=== PATIENT | female | born 1950 | race Caucasian/White ===

== ENCOUNTER 2022-08-07 14:00 | Outpatient (RCR) | payer MEDICARE, SELFPAY | END 2022-09-16 16:42 | disposition home or self-care (01) | LOC: PT 14:00 | PROVIDERS: PCP Family Medicine | DX: M17.0 Bilateral primary osteoarthritis of knee (principal); Z96.653 Presence of artificial knee joint, bilateral | CPT/HCPCS: 97110; 97112; 97161 ==

== ENCOUNTER 2022-11-04 13:58 | Outpatient (RCR) | payer MEDICARE, SELFPAY | END 2022-11-22 13:13 | disposition home or self-care (01) | LOC: PT 13:58 | PROVIDERS: PCP Family Medicine | DX: Z96.653 Presence of artificial knee joint, bilateral (principal) | CPT/HCPCS: 97110; 97113; 97161 ==

== ENCOUNTER 2023-07-03 13:35 | Outpatient (OUT) | payer MEDICARE, SELFPAY ==
--- NOTE | 2023-07-03 13:39 | MM_ITS ---
Patient Name: BLANCHE MONIQUE MR#: [id number] : 1950 Exam Date: 07/03/2023 Ordering Doctor: DR Carrie Anderson M.D. RADIOLOGY REPORT PROCEDURE: MM TOMOSYNTHESIS DIAGNOSTIC BI COMPARISON: MG MAMM SCREEN 3D YESSI CAD, 06/23/2022. 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 LOCATION: [facility] BREAST COMPOSITION: There are scattered areas of fibroglandular density. FINDINGS: DIAGNOSTIC CATEGORY 2--BENIGN FINDING. NO CHANGE FROM COMPARISON. Scattered benign-appearing nodules are present. Scattered benign-appearing calcifications are present. Scattered benign-appearing lymph nodes are present. RIGHT BREAST: No significant suspicious finding. Area of focal asymmetry identified in the mid medial breast on the CC projection and 2 areas on MLO projection upper mid breast and lower mid breast. All 3 areas compress out on spot images and likely represent overlap of fibroglandular tissue LEFT BREAST: No significant suspicious finding. No mammographic abnormality to correspond to the patient's left anterior medial breast rash. Further evaluation of the rash should be based on clinical and physical exam RECOMMENDATIONS: ROUTINE MAMMOGRAM AND CLINICAL EVALUATION IN 12 MONTHS. PLEASE NOTE: A NORMAL MAMMOGRAM DOES NOT EXCLUDE THE POSSIBILITY OF BREAST CANCER. A CLINICALLY SUSPICIOUS PALPABLE LUMP SHOULD BE BIOPSIED. Dictated by: Tam Schmitt MD on 07/03/2023 at 14:28 Approved by: Tam Schmitt MD on 07/03/2023 at 14:30
== END 2023-07-03 13:36 | disposition home or self-care (01) ==
LOC: MAMMO 13:35
PROVIDERS: PCP Family Medicine; Visit Provider Family Medicine
DX: N64.59 Other signs and symptoms in breast (principal); Q83.9 Congenital malformation of breast, unspecified
CPT/HCPCS: 77066; G0279

== ENCOUNTER 2023-08-13 08:56 | Outpatient (OUT) | payer MEDICARE, SELFPAY ==
[2023-08-13 09:48] LABS: Thyroid Stimulating Hormone 2.522 uIU/mL (0.358-3.740)
[2023-08-13 10:07] LABS: Free T4 0.94 ng/dL (0.76-1.46)
== END 2023-08-13 08:57 | disposition home or self-care (01) ==
LOC: LAB 08:58
PROVIDERS: PCP Family Medicine; Visit Provider Family Medicine
DX: E03.9 Hypothyroidism, unspecified (principal)
CPT/HCPCS: 36415; 84439; 84443

== ENCOUNTER 2024-08-22 11:12 | Outpatient (OUT) | payer MEDICARE, SELFPAY ==
--- OUTSIDE RECORDS SUMMARY | 2022-10-24 07:00 | XMS_ITS | Continuity of Care Document ---
Author Organization [facility] Address [address] [place] [address] Phone Care Team Providers Care Payable Manager Name Role Phone Perry Grace MD Unavailable Unavailable Allergies, Adverse Reactions, Alerts Substance Reaction Status Criticality No Known allergies Medications Medication Instructions Dosage Effective Dates (start - stop) Status Comments ropinirole 0.25 mg tablet - Active trazodone 50 mg tablet - Act natalie trospium 20 mg tablet - Acti ve ergocalciferol (vitamin D2) 1,250 mcg (50,000 unit) capsule TAKE 1 CAPSULE BY MOUTH ONE TIME PER WEEK - Active levothyroxine 50 mcg tablet - Active lisinopril 10 mg-hydrochlorothiazide 12.5 mg tablet TAKE 1 TABLET BY MOUTH EVERY DAY - Active paroxetine 30 mg tablet - Ac tive ferrous sulfate 325 mg (65 mg iron) tablet TAKE 1 TABLET BY MOUTH TWICE A DAY - Active mupirocin 2 % topical ointment - Active oxybutynin chloride ER 10 mg tablet,extended release 24 hr TAKE 1 TABLET BY MOUTH EVERY DAY - Active alendronate 70 mg tablet TAKE 1 TABLET BY MOUTH WEEKLY - Active azithromycin 250 mg tablet TAKE 2 TABLETS BY MOUTH TODAY, THEN TAKE 1 TABLET DAILY FOR 4 DAYS - Active amoxicillin 500 mg capsule - Active oxybutynin chloride ER 15 mg tablet,extended release 24 hr TAKE 1 TABLET BY MOUTH EVERY DAY - Active Procedures Procedure Date Office/outpatient visit,[facility], [facility] 2022 X-ray exam of knee, 3 views Office/outpatient visit,[facility] 2022 X-ray exam of knee, 3 views Advance Directives Directive Yes / No Effective Date File Name No Information Encounters Encounter Description Practice Location Reason(s) For Visit Diagnoses Date Provider Providers Copied on Encounter Office/outpa tient visit,[facility], [facility], [address] [place], [address], [place] tel:[phone] of [facility] 3 Sanjay Amador. [address], [address], [place], [place], [id number] , [place]. tel:[phone] Referring Provider: Carrie Ibanez, [address] [place] [address], [id number]. tel:[phone] Office/outpa tient visit,[facility], [address] [place], [address], [place] tel:[phone] Primary osteoarthritis of both kneesHistory of bilateral knee arthroplastyHist ory of bilateral knee arthroplastyPrim natalia osteoarthritis of both knees 3 Sanjay Amador. [address], [address], [place], [place], [id number] , [place]. tel:[phone] Referring Provider: Carrie Ibanez, [facility] [place], [address]. tel:[phone] Family History Family Member Type Diagnosis Age At Onset No Information Payers Payer name Insurance type Covered libertarian ID Authorodettea nashandrea(s) [employer] Medicare - [id number] Social History Type Description Quantity Date Captured Comments Alcohol Use Details Unknown Caffeine Use Details Unknown Tobacco Use Status No Information Smoking Status No Information Sex Female Chief Complaint And Reason For Visit No Information Reason For Referral Reason For Referral No Information History Of Present Illness Encounter Date Complaint History Of Prese nt Illness Knee Functional Status Date Functional Assessmen t No Information Instructions Date Instruction Additional Infor mation No Information Assessments Type Assessment Date No Information Patient Care Teams Name Effective Dates (start - stop) Status Members No Information
--- OUTSIDE RECORDS SUMMARY | 2024-08-08 11:00 | XMS_ITS | Encounter Summary ---
Author Organization [facility] Address [address] [place] [id number] Care Team Providers Care Spanish Interpreter/Translator Name Role Phone Carrie Anderson MD Primary Care Provider [phone] Filiberto Delcid MD Unavailable [phone] Alyssa Coronado REVENUE STAMP CLERK.INTERNATIONAL TRADE COMPLIANCE MANAGER Unavailable [phone] Marine Mccormack RN Unavailable [phone] Source Comments In the event this information is protected by the Federal Confidentiality of Alcohol and Drug AbusePatient Records regulations: The Federal rules restrict any use of the information to criminally investigate or prosecute any alcohol or drug abuse patient.[facility] Reason for Visit * Reason Comments IgM monoclonal gammopathy of uncertain s ignificance Encounter Details Date Type Department Care Team (Latest Contact Info) Description 08/08/2024 11:00 AM EDT Visit (SP) Office Hematology/Oncolog y [address] [facility] [place] [place] [address] Rahel Strauss APRN.INTERNATIONAL TRADE COMPLIANCE MANAGER [address] [facility] [place] [place] [address] 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); Waldenstrom's macroglobulinemia (HCC); Neuropathy associated with anti-MAG antibody Social History Tobacco Use Types Packs/Day Years Used Date Smoking Tobacco: Never Smokeless Tobacco: Never Alcohol Use Standard Drinks/Week Comments No 0 (1 standard drink = 0.6 oz pur e alcohol) PHQ-2 Answer Date Recorded PHQ-2 score 0 04/07/2024 Area Deprivation Index Answer Date Sriram rded National Score (1-100), lower number is lower ri sk 71 08/24/2023 State Score (1-10), lower number is lower risk 5 08/24/2023 Data from: https://www.neighborhoodatlas.medicine.[facility]/. Last address used for calculation [address] 08/24/2023 Comments No Sex and Gender Information Value Date Recorded Sex Assigned at Not on file Legal Sex Female 7:34 AM EST Gender Identity Not on file Sexual Orientation Not on file documented as of this encounter Last Filed Vital Signs Vital Sign Reading Time Taken Comments Blood Pressure 137/82 08/08/2024 11:12 AM EDT Pulse 69 08/08/2024 11:12 AM EDT Temperature 36.5 C (97.7 F) 08/08/2024 11:12 AM EDT Respiratory Rate 18 08/08/2024 11:1 2 AM EDT Oxygen Saturation 97% 08/08/2024 11: 12 AM EDT Inhaled Oxygen Concentration - - Weight 83.4 kg (183 lb 13.8 oz) 025 11:12 AM EDT Height - - Body Mass Index 31.7 07/06/2024 10:45 AM EDT documented in this encounter Functional Status * Are you deaf or do you have serious difficulty hearing? Answer Date of Assessment Author No 09/03/2017 11:43 AM EDT Mahsa Gomez RN * Are you blind or do you have serious difficulty seeing, even when wearing glasses? Answer Date of Assessment Author No 09/03/2017 11:43 AM EDT Mahsa Gomez RN * Do you have serious difficulty walking or climbing stairs? Answer Date of Assessment Author No 09/03/2017 11:43 AM EDT Mahsa Gomez RN * Do you have difficulty dressing or bathing? Answer Date of Assessment Author No 09/03/2017 11:43 AM EDT Mahsa Gomez RN * Because of a physical, mental, or emotional condition, do you have difficulty doing errands alone such as visiting a doctor's office or shopping? Answer Date of Assessment Author No 09/03/2017 11:43 AM EDT Mahsa Gomez RN documented as of this encounter Mental Status * Because of a physical, mental, or emotional condition, do you have serious difficulty concentrating, remembering, or making decisions? Answer Entry Date Author No 09/03/2017 11:43 AM EDT Mahsa Gomez RN documented in this encounter Patient Instructions * Patient Instructions* Rahel Strauss APRN.CNP - 08/08/2024 11:35 AM EDT We discussed your overall health and recent activities: - You mentioned feeling sore in your joints after being out of the pool last week due to helping your son move. Staying active, such as returning to the pool, may help alleviate joint discomfort. - You reported no new night sweats, lumps, bumps, fever, chills, or signs of infection. Your weighthas remained stable, and you have not experienced any falls. - Your numbness and tingling have slightly improved this month. - You are eating well, have no issues with diarrhea or constipation, and your energy level is good. We reviewed your medications: - Continue taking Brukinsa 80 mg twice daily, Bactrim, and Excalavir as prescribed. You reported noissues with these medications. We reviewed your lab results: - Your CBC results look good, with no concerns noted. Follow-up plan: - Return to the clinic in 4 weeks for an office visit and labs. - If you experience any new or worsening symptoms, please contact the office. documented in this encounter Progress Notes * Rahel Strauss APRN.CNP - 08/08/2024 11:00 AM EDT Images from the original note were not included. NAME: KenrickMarquita moore [facility] NO.: [id number] DATE OF SERVICE: August 08, 2024 (Rica) Some elements in this clinic note that are critical to medical decision making have been carefully reviewed and included from a prior clinic note dated: July 06, 2024 (Rica) Referring Provider: Dr. 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 BM biposy in November 2017 showed involvement by a low level B-cell lymphoproliferative neoplasm. Absolute IgM quite elevated with an M spike of 1.0. Does not seem to have any specific symptoms of neuropathy, splenomegaly, lymphadenopathy etc. In November 2017 PET/CT performed did not suggest significant active disease. Some inguinal nodes with an SUV of 3.6 and 4.6 but not larger than 1.2 cm. MAG ab and cryoglobulin diffusely positive at the diagnosis. Completed a course of maintenance Rituxan. Labs remained stable. Symptoms (neuropathy) initially improved but recurred and the patient started Brukinsa 160mg BID on 12/09/23. Her neuropathy has improved and the patient is feeling well on current therapy. However, 2.5 monthsof treatment, LFT's were elevated - paused treatment to allow resolution. LFTs normalized and the Brukinsa was resumed at 80 mg twice daily. Patient has been tolerating welland LFTs remain normal. PLAN: Continue Brukinsa 80 mg twice daily. RTC with labs in 4 weeks. Continue her bactrim and acyclovir. _ HPI: CASE HISTORY: Reverse Chronological Order 12/09/2023 - Started Brukinsa 160 mg BID for neuropathy 08/17/2023-09/07/2023 - Rituxan for neuropathy weekly x4 11/25/2022 - Right uatsdin melanoma in situ: A. Skin, right brow, wide excision: - Residual melanoma in situ, completely excised. - Scar compatible with prior procedure. - Intradermal nevus (incidental) 12/24/2017 - PET/CT: Mild bibasilar linear atelectasis/infiltrate. 3 mm noncalcified hypometabolic right lower lobe nodule. SUGGEST FOLLOW-UP CHEST CT IN 12 MONTHS FOR ADDITIONAL EVALUATION. Nonspecific hypermetabolic bilateral inguinal (left greater than right) and left external iliac nodes as above. 11/2017 - BMBX showed involvement by a low level B-cell lymphoproliferative neoplasm Updated Visit, August 08, 2024: Patient with a history of hypertension and CLL, currently managed with Brukinsa 80 mg twice daily, Bactrim, and acyclovir, presents for follow-up. She reports feeling well overall, with no new night sweats, early satiety, or lymphadenopathy. She denies fever, chills, signs of infection, or recent falls. Weight remains stable, and she has no issues with appetite, diarrhea, or constipation. She notes improvement in numbness and tingling this month and maintains good energy levels. She wasout of the pool last week due to moving her son, resulting in increased joint soreness. She plans to resume swimming this week. Recent CBC results are within normal limits. Updated Visit, July 06, 2024: Marquita returns today for a follow-up visit. Overall she is feeling good. She continues on Brukinsa 80 mg twice daily and is tolerating well with no adverse signs or symptoms. Neuropathy is the same not worsening. Patient's labs are stable. Patient is very active. She denies fever, chills, night sweats and signs symptoms of infection. No bleeding or bruising. She is here with Lucila today who isher support dog. Updated Visit, June 08, 2024: Marquita returns today for a follow-up visit. Overall she is feeling well. She remains on Riglcrmz73 mg twice daily and is tolerating well with no adverse signs or symptoms. Patient has good energylevel. Patient continues to be active. She will be receiving a massage at our facility today. She denies fever, chills, night sweats and signs/symptoms of infection. No bleeding or abnormal bruising. She is here with Lucila, who is her dog. Labs stable. Updated Visit, May 18, 2024: Marquita returns today for a follow-up visit. Overall she is doing well. She remains on Brukinsa 80 mg twice daily and is tolerating this dose well. She denies any side effects. Patient feels that she has more energy and her neuropathy has improved. She has a good appetite. She stays active and is currently doing pool exercises. She currently started a new water class. She has been having massages 2 times a week which has been helping. She denies any fever, chills, night sweats and signs/symptoms of infection. No bleeding or abnormal more bruising. She is here today with Lucila-who is her dog. Updated Visit, April 27, 2024: Marquita Abernathy returns for scheduled follow-up. She remains on Brukinsa 80 mg twice daily andis tolerating it well. She denies any side effects from the Brukinsa. She has noticed that she doesnot have quite as much neuropathy. Also, the neuropathy is not waking her up during the night as often. She denies fevers, chills, night sweats and signs/symptoms of infection. No bleeding or abnormal bruising. She has resumed her vitamin D. She is now in a pool exercise class which she attends Thursday through Thursday. She remains very active. She offers no new complaints today. No new issues, problems or concerns. Updated Visit, April 07, 2024: Marquita Abernathy returns for scheduled follow-up. She remains on Brukinsa 80 mg twice daily andis tolerating it well. She states that she is feeling pretty good and that her energy is also good.She has persistent neuropathy mainly in her hands which is worse at night. Overall no significant change in the neuropathy. She denies fevers, chills, night sweats and signs/symptoms of infection. Nobleeding or abnormal bruising. Overall, she is doing well. This weekend she will be traveling to [place] to see friends/family. Updated Visit, March 17, 2023: Marquita Abernathy returns for scheduled follow-up. At her last visit Brukinsa was held due to elevated LFTs. 1 week after stopping the Brukinsa her neuropathy returned. She has been off of the Brukinsa for 3 weeks. She is feeling good today. When she first started Brukinsa she had heart palpitations but has not had any since. She denies bleeding and abnormal bruising. No fevers, chills, night sweats or signs/symptoms of infection. She has a protein drink made with milk daily. She has not started any new supplements. No medication changes. She is currently not taking vitamin D. She contacted her PCP for a refill and has not heard back. Patient plans to call PCP. Updated Visit, February 25, 2024: Doing well on Brukinsa 160 bid - neuropathy waxed and waned for a little bit and now seems to have resolved. Palpitation have resolved. However, lft's are elevated and so we will pause therapy to allow resolution. Updated Visit, February 04, 2024: Marquita Abernathy returns for follow-up. She remains on Brukinsa 160 mg twice daily. She states that she has adjusted well to the Brukinsa. The diarrhea has settled down . She continues to have fatigue. She denies any shortness of breath. She has intermittently felt her heart beating. She denies heart racing. She denies fevers, chills, night sweats and signs/symptoms of infection. She denies bleeding and abnormal bruising. The neuropathy has improved. The neuropathy is milder . This still wakes her up on occasion. She does not have to walk to get rid of the numbness/tingling. She denies any lumps or bumps. Her appetite is good. Her weight is stable. Updated Visit, January 06, 2024: Marquita returns for follow up. Lucila (her service dog) is with her. She remains on Brukinsa 160 mg BID. Neuropathy is better. She is sleeping better because the neuropathy isn't waking her up at night anymore. Denies any bleeding, palpitations, headaches, rash, swelling or shortness of breath. Birdie brizuela she feels well on this medication. Updated Visit, December 23, 2023: Patient returns today for follow-up after starting Brukinsa for neuropathy. She is here with Lucila.Patient reports that she is doing much better today, neuropathy has decreased. Only experiences it once a day, no longer waking her up at night. Fatigue has decreased. Patient reports no headaches, no bleeding or bruising, no n/v. Patient has been checking her blood pressure at home, highest it hasbeen was 117/80 since starting Brukinsa. No fevers, chills, no recent illness. She is very happy with her new medication. Updated Visit, December 02, 2023: Marquita returns today for a follow up. She brought along her emotional support dog, Lucila. Her labs are stable overall. She reports not feeling as well as she expected following treatment. She is slightly less fatigued although neuropathy in her hands has returned, she says it wakes her up every night. She also occasionally feels neuropathy after driving for extended periods of time. We discussed some side effects of BTK inhibitors, she is in agreement to start Brukinsa. Updated Visit, October 08, 2023: Marquita returns for a follow up. Within the last week, she has begun to feel like herself again. She exercises at the pool in the mornings. Neuropathy in her hands has resolved with Rituxan. Updated Visit, August 06, 2023: Marquita returns today, doing well. Calcium is marginally high, per her usual. Labs are stable, although she complains of increasing fatigue and neuropathy in her hands - will treat with Rituxan weekly for 4 weeks. We discussed some AEs of Rituxan. Updated Visit, February 19, 2023: Marquita is doing well. Uses her walker for balance. She's always cheerful. Review of her labs indicates stable Waldenstrom's indices. No new symptoms to drive treatment decision. Updated Visit, September 04, 2022: Working on strengthening her knees and is in PT and pool therapy. Reviewed labs today and all myeloma evaluation remains stable. Symptoms remain largely unchanged and still has peripheral neuropathy. Updated Visit, February 26, 2022: Telephone visit 5 minutes Neuropathy in her hands especially at night but no other symptoms. Fatigue is well controlled. She lost a close friend to kidney cancer and has had some depression because of this but did not create more fatigue. Updated Visit, September 04, 2021: Calcium slightly elevated - drinks a lot of milk, will cut back. Neuropathy in her hands occurs at night - wakes her up with numbness and tingling. No issues in herfeet. Labs stable. Updated Visit, July 01, 2021: Telephone only for 10 minutes Marquita was to return today to review her iron studies and to consider taking IV iron since she would have difficulty absorbing iron orally given her prior bariatric surgery. But to car trouble we convirted to a virtual visit but then had technical difficulties and I spoke to her with her consentby telephone. She was alone.Her last dose of iron was with Ferraheme in 2018. She would like to tryoral iron first anyways and then consider IV iron infusions. Updated Visit, April 11, 2021: Telephone only for 23 minutes Fatigue for 1 month - which she seems to underplay as no significant changes but I explained that this is a potentially treatable issue. Labs seem to show mild progression. Will check in with her in a month or two. Updated Visit, December 05, 2020: Marquita returns today feeling pretty good although she hadn't been when she went on vacation and went off of her vitamin supplements. Her review of systems is negative by full review of organ systems. Her neuropathy is stable. Anemia is also stable. Waldenstroms labs are stable. M-spike was 0.44 and she reports no symptoms. 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 She has relocated to the [facility] and obtained laboratories there. She feels really well and her review of systems is negative by full review of organ systems. Her neuropathy is stable. Anemia is also stable. Waldenstroms labs are stable. M-spike was 0.41 and she reports no symptoms. She was in [place] today helping her son with landscaping. 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 She is relocating to the [facility] and will obtain laboratories there. She feels well and her review of systems is negative by full review of organ systems. She will continue getting Zometa for 1 additional dose and then discontinue. Her neuropathy is stable. Anemia is also stable. Updated Visit, July 21, 2019: Presented anemic after 3 ortho surgeries accompanied by severe fatigue. Rituxan seems to have helped. Is ok to stop therapy now. Educated her regarding monitoring for hyperviscosity sx. She is retiring this month from being a [employer] Senior [employer]. _ REVIEW OF SYSTEMS Per HPI and otherwise negative by full review of organ systems. _ ECOG PERFORMANCE STATUS: 2 PHYSICAL EXAMINATION: Vitals: BP 137/82 Pulse 69 Temp (Src) 97.7 (Temporal) Resp 18 Wt 183 lb 13.8 oz (83.4kg) SpO2 97% Body surface area is 1.94 meters squared. Exam limited to gross visualization where appropriate. Gen.: This is an age-appropriate patient in no acute distress. Uses a walker for balance. Head: Appears atraumatic with no visible lesions. Eyes: Pupils equally round and reactive to light, extraocular muscles are intact. Neck: Supple. Respiratory: Appears to be respiring comfortably. Neurologic: Nonfocal to gross visualization. Alert and oriented ??3. Psychiatric: No evidence of inappropriate anxiety or depression. Skin: Visible areas of skin without rash, lesions, wounds or petechiae. _ ALLERGIES: ALLERGIES No Known Allergies MEDICATIONS: zanubrutinib (BRUKINSA) 80 mg capsule Take 1 capsule by mouth two times a day. acyclovir (ZOVIRAX) 400 mg tablet Take 1 tablet by mouth two times a day. sulfamethoxazole-trimethoprim (BACTRIM) 400-80 mg per tablet Take 1 tablet by mouth once daily. biotin 5,000 mcg chew Take 5,000 mcg by mouth once daily. [id number]-FFC-SY0-Gdw-Astx (KRILL OIL) 1000-130(40-80) mg cap Take 1 Dose by mouth once daily. vitamin B complex (SUPER B COMPLEX ORAL) Take 1 Dose by mouth once daily. Zinc Gluconate 50 mg tablet Take 50 mg by mouth once daily. homeopathic drugs (LIVER ORAL) Take 9,000 mg by mouth once daily. Vitamin E, dl, acetate, (VITAMIN E) 400 unit capsule Take 400 Units by mouth once daily. TURMERIC ROOT-RENO ROOT EXT ORAL Take 1 Dose by mouth once daily. APPLE CIDER VINEGAR ORAL Take 1 Dose by mouth once daily. ergocalciferol 50,000 unit capsule (VITAMIN D2, DRISDOL) one time a week. traZODone (DESYREL) 50 mg tablet TAKE 1 TABLET BY MOUTH EVERY DAY AT BEDTIME NEEDED FOR 30 DAYS ferrous sulfate 325 mg (65 mg iron) tablet Take by mouth q 24 HR. alendronate (FOSAMAX) 70 mg tablet Take 70 mg by mouth one time a week. ropinirole HCl (ROPINIROLE ORAL) Take 0.25 mg by mouth daily at bedtime. lisinopril-hydrochlorothiazide (PRINZIDE,ZESTORETIC) 10-12.5 mg per tablet Take 0.5 tablets by mouth once daily. levothyroxine (SYNTHROID) 100 mcg tablet Take 100 mcg by mouth once daily. multivitamin tablet Take 1 tablet by mouth twice daily. ascorbic acid, vitamin C, (VITAMIN C) 500 mg tablet Take 1 tablet by mouth once daily. PARoxetine (PAXIL) 40 mg tablet Take 40 mg by mouth once daily. OMEPRAZOLE ORAL Take 20 mg by mouth once daily. LABORATORY VALUES: WBC (k/uL) Date Value 08/08/2024 9.16 RBC (m/uL) Date Value 08/08/2024 3.96 Hemoglobin (g/dL) Date Value 08/08/2024 12.4 Hematocrit (%) Date Value 08/08/2024 38.7 MCV (fL) Date Value 08/08/2024 97.7 MCH (pg) Date Value 08/08/2024 31.3 MCHC (g/dL) Date Value 08/08/2024 32.0 RDW-CV (%) Date Value 08/08/2024 13.2 Platelet Count (k/uL) Date Value 08/08/2024 157 MPV (fL) Date Value 08/08/2024 11.3 Glucose (mg/dL) Date Value 08/08/2024 88 BUN (mg/dL) Date Value 08/08/2024 33 (H) Creatinine (mg/dL) Date Value 08/08/2024 0.84 Sodium (mmol/L) Date Value 08/08/2024 141 Potassium (mmol/L) Date Value 08/08/2024 4.2 Chloride (mmol/L) Date Value 08/08/2024 105 CO2 (mmol/L) Date Value 08/08/2024 26 Protein, Total (g/dL) Date Value 08/08/2024 5.9 (L) Albumin (g/dL) Date Value 08/08/2024 4.0 Calcium, Total (mg/dL) Date Value 08/08/2024 10.0 Alkaline Phosphatase (U/L) Date Value 08/08/2024 72 Bilirubin, Total (mg/dL) Date Value 08/08/2024 0.2 AST (U/L) Date Value 08/08/2024 33 ALT (U/L) Date Value 08/08/2024 28 M-Protein Concentration Date Value 05/18/2024 0.30 g/dL 04/07/2024 0.34 g/dL 02/25/2024 0.26 g/dL 02/04/2024 0.29 g/dL 12/23/2023 0.37 g/dL 04/02/2021 0.47 gm/dL 11/29/2020 0.44 gm/dL 09/04/2020 0.41 gm/dL 05/14/2020 0.40 gm/dL 02/10/2020 0.34 gm/dL _ DIAGNOSIS: (D47.2) IgM monoclonal gammopathy of uncertain significance (primary encounter diagnosis) (G62.89) Neuropathy associated with anti-MAG antibody (C88.00) Waldenstrom's macroglobulinemia (I10) Essential hypertension, benign (Z98.84) Bariatric surgery status PAST MEDICAL HISTORY Diagnosis Date Bariatric surgery status October 2005 S/P Gastric Bypass Esophageal reflux Essential hypertension, benign Generalized osteoarthrosis, unspecified site S/P bilateral TKA's Iron deficiency anemia 09/2017 Menopause 57 yrs old Status post total hip replacement, right 04/24/2017 Unspecified hypothyroidism PAST SURGICAL HISTORY Procedure Laterality Date ARTHRP KNE CONDYLE&PLATU MEDIAL&LAT COMPARTMENTS 2003 Bilateral- [facility] GASTRIC BYPASS 2005 LAPAROSCOPIC CHOLECYSTECTOMY 2000 [facility] MALIGNANT MELANOMA - WIDE EXCISION IN ANY AREA AND MUST INCLUDE > 1CM MARGINS & LAYERED CLOSURE on face- x 3 PAST SURGICAL HISTORY OF 2006 Ligation of fistula repair of right popliteal artery and vein with right popliteal artery vein patch 09/19/06 PAST SURGICAL HISTORY OF 04/03/2017 Right SOUMYA REVISION OF KNEE JOINT Right 12/12/2016 REVJ TOT KNEE ARTHRP FEM&ENTIRE TIBIAL COMPONE 2005, April Right TKA revision- [facility] UNLIST[facility] SPINE SURGERY OR PROCEDURE 2001 Herniated Disc- [facility] Social History Tobacco Use Smoking status: Never Smokeless tobacco: Never Vaping Use Vaping status: Never Used Substance Use Topics Alcohol use: No Drug use: No FAMILY HISTORY Problem Relation Age of Onset Heart Father CHF Alzheimer's Disease Mother Cancer Mother Psychiatry Child OCD GI Child Developmental problem Child Scoliosis(twin a), Congenital back problems (twin b) Hypertension Other Stroke Other Arthritis Other Breast Cancer Other Headache Other Ischemic Heart Disease Other DC I spent a total of 30 minutes on the date of the service which included preparing to see the patient, [id number] patient care, completing clinical documentation, obtaining and/or reviewing separately obtained history, performing a medically appropriate examination, counseling and educating the pat ient/family/caregiver, ordering medications, tests, or procedures, independently interpreting results (not separately reported), and communicating results to the patient/family/caregiver. . Rahel Strauss APRN, COMPUTER HARDWARE ENGINEER-C, [facility] Provided at: [place], [place] CC: MD Nilesh Randolph MD Emily Slopnick, MD documented in this encounter Plan of Treatment Upcoming Encounters Date Type Department Care Team (Latest Contact Info) Description 08/23/2024 1:00 PM EDT Visit (SP) Office Hematology/Oncology [address] [place] [address] Curly Knapp LMT Massage - patient will be in Lobby 08/30/2024 1:00 PM EDT Visit (SP) Office Hematology/Oncology [address] [place] [address] Curly Knapp LMT Massage - patient will be in Lobby 09/07/2024 10:45 AM EDT Office Visit [facility] [address] [place] [address] 4 week follow up with lab 09/07/2024 11:00 AM EDT Visit (SP) Office Hematology/Oncology [address] [place] [address] [place] [address] Rahel Strauss APRN.INTERNATIONAL TRADE COMPLIANCE MANAGER [address] [place] [address] 4 week follow up with lab 09/13/2024 1:00 PM EDT Visit (SP) Office Hematology/Oncology [address] [place] [address] [place] [address] Curly Knapp LMT Massage - patient will be in Lobby 09/20/2024 1:00 PM EDT Visit (SP) Office Hematology/Oncology [address] [place] [address] [place] [address] Curly Knapp LMT Massage - patient will be in Lobby 09/27/2024 1:00 PM EDT Visit (SP) Office Hematology/Oncology [address] [place] [address] Curly Knapp LMT [facility] documented as of this encounter Visit Diagnoses Diagnosis 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 Waldenstrom's macroglobulinemia (HCC) Macroglobulinemia 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 documented in this encounter Care Teams Spanish Interpreter/Translator Relationship Specialty Start Date End Date Carrie Anderson MD [address] [place] [phone] PCP - General Family Medicine 04/29/12 Filiberto Delcid MD [address] [address] Physician Hematology/Oncology 08/14/23 Alyssa Coronado APRN.INTERNATIONAL TRADE COMPLIANCE MANAGER [address] [address] Nurse Practitioner Hematology/Oncology 08/14/23 Marine Mccormack, EDISON [address] [address] Specialty Type Copyist Hematology/Oncology 08/14/23 documented as of this encounter
--- OUTSIDE RECORDS SUMMARY | 2024-08-09 13:00 | XMS_ITS | Encounter Summary ---
Author Organization [facility] Address [address] [place] [address] Care Team Providers Care Credit Collector Name Role Phone Carrie Anderson MD Primary Care Provider [phone] Filiberto Delcid MD Unavailable [phone] Alyssa Coronado APRN.HEAD MECHANIC Unavailable [phone] Marine Mccormack RN Unavailable [phone] Source Comments In the event this information is protected by the Federal Confidentiality of Alcohol and Drug AbusePatient Records regulations: The Federal rules restrict any use of the information to criminally investigate or prosecute any alcohol or drug abuse patient.[facility] Encounter Details Date Type Department Care Team (Latest Contact Info) Description 08/09/2024 1:00 PM EDT Visit (SP) Office Hematology/Oncology [address] [place] [address] [place] [address] Curly Knapp LMT Muscle soreness (Primary Dx) Social History Tobacco Use Types Packs/Day Years [...] is lower risk 5 08/24/2023 Data from: https://www.neighborhoodatlas.medicine.[facility]/. Last address used for calculation [address] 08/24/2023 Comments No Sex and Gender Information Value Date Recorded Sex Assigned at Not on file Legal Sex Female 7:34 AM EST Gender Identity Not on file Sexual Orientation Not on file documented as of this encounter Functional Status * Are you deaf or do you have serious difficulty hearing? Answer Date of Assessment Author No 09/03/2017 11:43 AM Mahsa Maldonado RN * Are you blind or do you have serious difficulty seeing, even when wearing glasses? Answer Date of Assessment Author No 09/03/2017 11:43 AM Mahsa Maldonado RN * Do you have serious difficulty walking or climbing stairs? Answer Date of Assessment Author No 09/03/2017 11:43 AM Mahsa Maldonado RN * Do you have difficulty dressing or bathing? Answer Date of Assessment Author No 09/03/2017 11:43 AM Mahsa Maldonado RN * Because of a physical, mental, or emotional condition, do you have difficulty doing errands alone such as visiting a doctor's office or shopping? Answer Date of Assessment Author No 09/03/2017 11:43 AM Mahsa Maldonado RN documented as of this encounter Mental Status * Because of a physical, mental, or emotional condition, do you have serious difficulty concentrating, remembering, or making decisions? Answer Entry Date Author No 09/03/2017 11:43 AM Mahsa Maldonado RN documented in this encounter Progress Notes * Curly Knapp LMT - 08/09/2024 2:22 PM EDT Patient Name: Marquita Abernathy : 1950 Referred For: Chair massage Diagnosis: muscle soreness Chief Complaint: Relaxation and Stress Anxiety (pre): patient declined to answer Pain (pre): 4 Stress Level (pre): 4 Therapy Provided: Massage Therapy Area(s) Treated: Bilateral knees, lower back, shoulders and neck Anxiety (post): patient declined to answer Pain (post): 2 Stress Level (post): <1 Visit Outcome: Better Comments: patient states of soreness in both knees and release stress Treatment Plan: Light pressure, Armenian massage, effleurage/petrissage, cross fiber friction to bilateral knees (added manual lymph drainage posterior knees), upper/lower trapezius, cervical neck Care Team contacted: N/A Signature: Curly Knapp LMT Date: August 09, 2024 Time: 2:22 PM documented in this encounter Plan of Treatment Upcoming Encounters Date Type Department Care Team (Latest Contact Info) Description 08/23/2024 1:00 PM EDT Visit (SP) Office Hematology/Oncology [address] [place] [address] [place] [address] Curly Knapp LMT Massage - patient will be in [facility] 08/30/2024 1:00 PM EDT Visit (SP) Office Hematology/Oncology [address] [place] [address] [place] [address] Curly Knapp LMT Massage - patient will be in [facility] 09/07/2024 10:45 AM EDT Office Visit [facility] [address] [place] [address] [place] [address] 4 week follow up with lab 09/07/2024 11:00 AM EDT Visit (SP) Office Hematology/Oncology [address] [place] [address] [place] [address] Rahel Strauss APRN.[address] [place] [address] 4 week follow up with lab 09/13/2024 1:00 PM EDT Visit (SP) Office Hematology/Oncology [address] [place] [address] [place] [address] Curly Knapp LMT Massage - patient will be in [facility] 09/20/2024 1:00 PM EDT Visit (SP) Office Hematology/Oncology [address] [place] [address] [place] [address] Curly Knapp LMT Massage - patient will be in Lobby 09/27/2024 1:00 PM EDT Visit (SP) Office Hematology/Oncology [address] [place], [place] [id number] Curly Knapp LMT Massage - patient will be in Lobby documented as of this encounter Visit Diagnoses Diagnosis Muscle soreness- Primary Mylagia and myositis, unspecified documented in this encounter Care Teams Credit Collector Relationship Specialty Start Date End Date Carrie Anderson MD [address] [place] [address] PCP - General Family Medicine 04/29/12 Filiberto Delcid MD [address] [place] [address] Physician Hematology/Oncology 08/14/23 Alyssa Coronado APRN.HEAD MECHANIC [address] [place] [address] Nurse Practitioner Hematology/Oncology 08/14/23 Marine Mccormack, EDISON [address] [place] [address] Specialty [employer] Special Education Teacher Hematology/Oncology 08/14/23 documented as of this encounter
--- OUTSIDE RECORDS SUMMARY | 2024-08-16 13:00 | XMS_ITS | Encounter Summary ---
Author Organization [facility] Address [address] [place] [address] Care Team Providers Care Lead Ramp Service Man Name Role Phone Carrie Anderson MD Primary Care Provider [phone] Filiberto Delcid MD Unavailable [phone] Alyssa Coronado APRN.FERRY OPERATOR Unavailable [phone] Marien Mccormack RN Unavailable [phone] Source Comments In the event this information is protected by the Federal Confidentiality of Alcohol and Drug AbusePatient Records regulations: The Federal rules restrict any use of the information to criminally investigate or prosecute any alcohol or drug abuse patient.[facility] Encounter Details Date Type Department Care Team (Latest Contact Info) Description 08/16/2024 1:00 PM EDT Visit (SP) Office Hematology/Oncology [address] [place] [address] [place] [address] Curly Knapp LMT Muscle soreness (Primary [...] is lower risk 5 08/24/2023 Data from: https://www.neighborhoodatlas.medicine.[facility]/. Last address used for calculation [address] [...] Progress Notes * Curly Knapp LMT - 08/16/2024 2:22 PM EDT Patient Name: Marquita Abernathy : 1950 Referred For: Chair massage Diagnosis: muscle soreness Chief Complaint: Relaxation Anxiety (pre): patient declined to answer Pain (pre): patient declined to answer Stress Level (pre): patient declined to answer Therapy Provided: Massage Therapy Area(s) Treated: Knees, shoulders and back Anxiety (post): patient declined to answer Pain (post): patient declined to answer Stress Level (post): patient declined to answer Visit Outcome: Better Comments: Treatment Plan: Medium pressure, Armenian massage effleurage/petrissage, cross fiber friction to cervical neck, upper trapezius, lower back and manual lymph drainage to bilateral knees Care Team contacted: N/A Signature: Curly Knapp LMT Date: August 16, 2024 Time: 2:22 PM documented in this encounter Plan of Treatment Upcoming Encounters Date Type Department Care Team (Latest Contact Info) Description 08/23/2024 1:00 PM EDT Visit (SP) Office Hematology/Oncology [address] [place] [address] [place] [address] Curly Knapp LMT Massage - patient will be in [facility] 08/30/2024 1:00 PM EDT Visit (SP) Office Hematology/Oncology [address] [place] [address] [place] [address] Curly Knapp LMT Massage - patient will be in [facility] 09/07/2024 10:45 AM EDT Office Visit [facility] Laboratory [address] [place] [address] [place] [address] 4 week follow up with lab 09/07/2024 11:00 AM EDT Visit (SP) Office Hematology/Oncology [address] [place] [address] [place] [address] Rahel Strauss APRN.FERRY OPERATOR [address] [place] [address] [place] [address] 4 week follow up with lab 09/13/2024 1:00 PM EDT Visit (SP) Office Hematology/Oncology [address] [place] [address] [place] [address] Curly Knapp LMT Massage - patient will be in [facility] 09/20/2024 1:00 PM EDT Visit (SP) Office Hematology/Oncology [address] [place] [address] [place] [address] Curly Knapp LMT Massage - patient will be in Lobby 09/27/2024 1:00 PM EDT Visit (SP) Office Hematology/Oncology [address] [place] [address] [place] [address] Curly Knapp LMT Massage - patient will be in Lobby documented as of this encounter Visit Diagnoses Diagnosis Muscle soreness- Primary Mylagia and myositis, unspecified documented in this encounter Care Teams Lead Ramp Service Man Relationship Specialty Start Date End Date Carrie Anderson MD [address] [place] [phone] PCP - General Family Medicine 04/29/12 Filiberto Delcid MD [address] [place] [address] [place] [address] Physician Hematology/Oncology 08/14/23 Alyssa Coronado APRN.FERRY OPERATOR [address] [place] [address] [place] [address] Nurse Practitioner Hematology/Oncology 08/14/23 Marine Mccormack, EDISON [address] [place] [address] [place] [address] Specialty Sandwich Artist Hematology/Oncology 08/14/23 documented as of this encounter
--- OUTSIDE RECORDS SUMMARY | 2024-08-22 11:16 | XMS_ITS ---
Author Organization [facility] Address [address] [place] [address] Care Team Providers Care Pump Stitcher Name Role Phone Carrie Anderson MD Primary Care Provider [phone] Filiberto Delcid MD Unavailable [phone] Alyssa Coronado LIBRARIAN SPECIAL LIBRARY.CONTINUOUS LINTER DRIER OPERATOR Unavailable [phone] Marine Mccormack RN Unavailable [phone] Active Problems Problem Noted Date Diagnosed Date Recurrent major depressive disorder, in partial remission 12/10/2022 Neuropathy associated with anti-MAG antibody Waldenstrom's macroglobulinemia 12/16/2017 IgM monoclonal gammopathy of uncertain significa nce 11/30/2017 Iron deficiency anemia 10/28/2017 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 Overview (07/14/2017): Added automatically from request for surgery [id number] Status post total hip replacement, right 018 Degenerative joint disease of right hip 04/03/19 18 Knee joint replacement status 12/12/2016 Primary osteoarthritis of right hip 11/19/2016 Painful total knee replacement 11/19/2016 Infection and inflammatory r eaction due to other internal orthopedic device, implant, and graft 09/08/2006 Undiagnosed cardiac murmurs 08/24/2006 Nonspecific abnormal results of liver function s richarddy 08/24/2006 Essential hypertension, benign 07/24/2006 Unspecified hypothyroidism 07/24/2006 Knee joint replacement by other means 07/24/2006 Bariatric surgery status 07/24/2006 Generalized osteoarthrosis, unspecified site Esophageal reflux Current Treatment and Therapy Plans No current plan information found. Past Treatment and Therapy Plans ONCOLOGY REGIMEN Plan Name Start Date Discontinue Date Treatment Medications Discontinue Reason Plan Provider Cycles AMB RITUXIMAB 375/1400 D1,8,15,22 4 05/03/2024 riTUXimab-pvvr iv piggyback (RUXIENCE) Other Filiberto Delcid MD 1 of 1 cycle started RITUXIMAB 375/1400 D1,8,15,22 THEN D1 Q60D STARTING D71 0 07/21/2019 riTUXimab iv piggyback (RITUXAN) Treatment Complete Filiberto Delcid MD Treatment not started CARFILZOMIB D1,2,8,9 RITUXIMAB 375 D2,9 - Q21D 01/26/20 18 01/25/2018 carfilzomib iv piggyback in D5W (KYPROLIS)Zandra Ximab iv piggyback (RITUXAN) Other José Manuel Carrion, Treatment not started Resolved Problems Problem Noted Date Diagnosed Date Resolved Date Obesity (BMI 30-39.9) 11/12/20222022
--- OUTSIDE RECORDS SUMMARY | 2024-08-22 11:16 | XMS_ITS | Encounter Summary ---
Author Organization [facility] Address [address] [place] [address] Care Team Providers Care Physician Practice Coordinator Name Role Phone Carrie Anderson MD Primary Care Provider [phone] José Manuel Carrion DO Unavailable [phone] Alyssa Coronado MANAGER SPA.BEATER ROOM HELPER Unavailable [phone] Marine Mccormack RN Unavailable [phone] Magda Mcdaniel RN Unavailable Filiberto Delcid MD Unavailable [phone] Alyssa Coronado MANAGER SPA.BEATER ROOM HELPER Unavailable [phone] Marine Mccormack RN Unavailable [phone] Source Comments In the event this information is protected by the Federal Confidentiality of Alcohol and Drug AbusePatient Records regulations: The Federal rules restrict any use of the information to criminally investigate or prosecute any alcohol or drug abuse patient.[facility] Encounter Details Date Type Department Care Team (Late st Contact Info) Description 02/18/2017 Patient Msg Medical Records [address] [place] [address] Provider, [facility] Medical Education Program Social History Tobacco Use Types Packs/Day Years Used Date Smoking Tobacco: Never Smokeless Tobacco: Never Alcohol Use Standard Drinks/Week Comments No 0 (1 standard drink = 0.6 oz pur e alcohol) Comments No Sex and Gender Information Value Date Recorded Sex Assigned at Not on file Legal Sex Female 7:34 AM EST Gender Identity Not on file Sexual Orientation Not on file documented as of this encounter Functional Status * Are you deaf or do you have serious difficulty hearing? Answer Date of Assessment Author No 12/17/2016 12:02 PM EDT Zahira Johnson APRN.BEATER ROOM HELPER * Are you blind or do you have serious difficulty seeing, even when wearing glasses? Answer Date of Assessment Author No 12/17/2016 12:02 PM EDT Zahira Johnson APRN.BEATER ROOM HELPER * Do you have serious difficulty walking or climbing stairs? Answer Date of Assessment Author Yes 12/17/2016 12:02 PM EDT Zahira Johnson APRN.BEATER ROOM HELPER * Do you have difficulty dressing or bathing? Answer Date of Assessment Author Yes 12/17/2016 12:02 PM EDT Zahira Johnson APRN.BEATER ROOM HELPER * Because of a physical, mental, or emotional condition, do you have difficulty doing errands alone such as visiting a doctor's office or shopping? Answer Date of Assessment Author Yes 12/17/2016 12:02 PM EDT Zahira Johnson APRN.BEATER ROOM HELPER documented as of this encounter Mental Status * Because of a physical, mental, or emotional condition, do you have serious difficulty concentrating, remembering, or making decisions? Answer Entry Date Author No 12/17/2016 12:02 PM EDT Zahira Johnson APRN.BEATER ROOM HELPER documented in this encounter Plan of Treatment Upcoming Encounters Date Type Department Care Team (Latest Contact Info) Description 08/23/2024 1:00 PM EDT Visit (SP) Office Hematology/Oncology [address] [place] [address] [place] [address] Curly Knapp LMT Massage - patient will be in Lobby 08/30/2024 1:00 PM EDT Visit (SP) Office Hematology/Oncology [address] [place] [address] [place] [address] Ra, Martricia, LMT Massage - patient will be in Lobby 09/07/2024 10:45 AM EDT Office Visit [facility] Laboratory [address] [place] [address] 4 week follow up with lab 09/07/2024 11:00 AM EDT Visit (SP) Office Hematology/Oncology [address] [place] [address] Rahel Strauss APRN.BEATER ROOM HELPER [address] [facility] [place] [address] 4 week follow up with lab 09/13/2024 1:00 PM EDT Visit (SP) Office Hematology/Oncology [address] [place] [address] Curly Knapp LMT Massage - patient will be in [facility] 09/20/2024 1:00 PM EDT Visit (SP) Office Hematology/Oncology [address] [place] [address] Curly Knapp LMT Massage - patient will be in [facility] 09/27/2024 1:00 PM EDT Visit (SP) Office Hematology/Oncology [address] [facility] [place] [address] Curly Knapp LMT Massage - patient will be in [facility] documented as of this encounter Visit Diagnoses Not on filedocumented in this encounter Care Teams Physician Practice Coordinator Relationship Specialty Start Date End Date Carrie Anderson MD [address] [place] [phone] PCP - General Family Medicine 04/29/12 José Manuel Carrion DO [address] [place] [address] Consulting Hematology/Oncology 10/28/17 05/24/19 Alyssa Coronado APRN.BEATER ROOM HELPER [address] [facility] [place] [address] Nurse Practitioner Hematology/Oncology 01/18/1805/23/ 0 Marine Mccormack, EDISON [address] [facility] [place] [place] [address] Specialty Truss Builder Hematology/Oncology 03/16/19 05/24/19 Magda Mcdaniel RN [address] [place] [address] Specialty Truss Builder Orthopedics 08/08/22 11/08/22 Filiberto Delcid MD [address] [facility] [place] [address] Physician Hematology/Oncology 08/14/23 Alyssa Coronado APRN.BEATER ROOM HELPER [address] [facility] [place] [address] Nurse Practitioner Hematology/Oncology 08/14/23 Marine Mccormack, EDISON [address] [facility] [place] [place] [address] Specialty Truss Builder Hematology/Oncology 08/14/23 documented as of this encounter
--- OUTSIDE RECORDS SUMMARY | 2024-08-22 11:16 | XMS_ITS | Encounter Summary ---
Author Organization [facility] Address [address] [place] [address] Care Team Providers Care Driver Education Instructor Name Role Phone Carrie Anderson MD Primary Care Provider [phone] José Manuel Carrion DO Unavailable [phone] Alyssa Coronado PROGRAM SUPPORT SPECIALIST.PROFESSOR OF BUSINESS Unavailable [phone] Marine Mccormack RN Unavailable [phone] Magda Mcdaniel RN Unavailable Filiberto Delcid MD Unavailable [phone] Alyssa Coronado PROGRAM SUPPORT SPECIALIST.PROFESSOR OF BUSINESS Unavailable [phone] Marine Mccormack RN Unavailable [phone] Source Comments In the event this information is protected by the Federal Confidentiality of Alcohol and Drug AbusePatient Records regulations: The Federal rules restrict any use of the information to criminally investigate or prosecute any alcohol or drug abuse patient.[facility] Encounter Details Date Type Department Care Team (Late st Contact Info) Description 02/18/2017 Patient Msg Medical Records [address] [place] [address] Provider, [facility] Medical Education Program Social History Tobacco Use [...] No 12/17/2016 12:02 PM EDT Zahira Johnson APRN.PROFESSOR OF BUSINESS * Are you blind or do you have serious difficulty seeing, even when wearing glasses? Answer Date of Assessment Author No 12/17/2016 12:02 PM EDT Zahira Johnson APRN.PROFESSOR OF BUSINESS * Do you have serious difficulty walking or climbing stairs? Answer Date of Assessment Author Yes 12/17/2016 12:02 PM EDT Zahira Johnson APRN.PROFESSOR OF BUSINESS * Do you have difficulty dressing or bathing? Answer Date of Assessment Author Yes 12/17/2016 12:02 PM EDT Zahira Johnson APRN.PROFESSOR OF BUSINESS * Because of a physical, mental, or emotional condition, do you have difficulty doing errands alone such as visiting a doctor's office or shopping? Answer Date of Assessment Author Yes 12/17/2016 12:02 PM EDT Zahira Johnson APRN.PROFESSOR OF BUSINESS documented as of this encounter Mental Status * Because of a physical, mental, or emotional condition, do you have serious difficulty concentrating, remembering, or making decisions? Answer Entry Date Author No 12/17/2016 12:02 PM EDT Zahira Johnson APRN.PROFESSOR OF BUSINESS documented in this encounter Plan of Treatment Upcoming Encounters Date Type Department Care Team (Latest Contact Info) Description 08/23/2024 1:00 PM EDT Visit (SP) Office Hematology/Oncology [address] [place] [address] [place] [address] Curly Knapp LMT Massage - patient will be in Lobby 08/30/2024 1:00 PM EDT Visit (SP) Office Hematology/Oncology [address] [place] [address] [place] [address] Ra, Martricia, LMT Massage - patient will be in Lobby 09/07/2024 10:45 AM EDT Office Visit [facility] [address] [place] [address] 4 week follow up with lab 09/07/2024 11:00 AM EDT Visit (SP) Office Hematology/Oncology [address] [place] [address] Rahel Strauss APRN.PROFESSOR OF BUSINESS [address] [place] [address] 4 week follow up with lab 09/13/2024 1:00 PM EDT Visit (SP) Office Hematology/Oncology [address] [place] [address] Curly nKapp LMT Massage - patient will be in [facility] 09/20/2024 1:00 PM EDT Visit (SP) Office Hematology/Oncology [address] [place] [address] Curly Knapp LMT Massage - patient will be in [facility] 09/27/2024 1:00 PM EDT Visit (SP) Office Hematology/Oncology [address] [facility] [place] [address] Curly Knapp LMT Massage - patient will be in [facility] documented as of this encounter Visit Diagnoses Not on filedocumented in this encounter Care Teams Driver Education Instructor Relationship Specialty Start Date End Date Carrie Anderson MD [address] [place] [phone] PCP - General Family Medicine 04/29/12 José Manuel Carrion DO [address] [place] [address] Consulting Hematology/Oncology 10/28/17 05/24/19 Alyssa Coronado APRN.PROFESSOR OF BUSINESS [address] [facility] [address] Nurse Practitioner Hematology/Oncology 01/18/1805/23/ 0 Marine Mccormack, EDISON [address] [facility] [place] [address] Specialty Billing Services Manager Hematology/Oncology 03/16/19 05/24/19 Magda Mcdaniel RN [address] [place] [address] Specialty Billing Services Manager Orthopedics 08/08/22 11/08/22 Filiberto Delcid MD [address] [facility] [place] [address] Physician Hematology/Oncology 08/14/23 Alyssa Coronado APRN.PROFESSOR OF BUSINESS [address] [facility] [place] [address] Nurse Practitioner Hematology/Oncology 08/14/23 Marine Mccormack, EDISON [address] [facility] [address] Specialty Billing Services Manager Hematology/Oncology 08/14/23 documented as of this encounter
--- OUTSIDE RECORDS SUMMARY | 2024-08-22 11:16 | XMS_ITS | Encounter Summary ---
Author Organization [facility] Address [address] [place] [address] Care Team Providers Care Felling Bucking Supervisor Name Role Phone Carrie Anderson MD Primary Care Provider [phone] José Manuel Carrion DO Unavailable [phone] Alyssa Coronado DIESEL MECHANIC.MANAGER TRANSPORTATION Unavailable [phone] Marine Mccormack RN Unavailable [phone] Magda Mcdaniel RN Unavailable Filiberto Delcid MD Unavailable [phone] Alyssa Coronado DIESEL MECHANIC.MANAGER TRANSPORTATION Unavailable [phone] Marine Mccormack RN Unavailable [phone] Source Comments In the event this information is protected by the Federal Confidentiality of Alcohol and Drug AbusePatient Records regulations: The Federal rules restrict any use of the information to criminally investigate or prosecute any alcohol or drug abuse patient.[facility] Encounter Details Date Type Department Care Team (Late st Contact Info) Description 11/28/2016 Patient Msg Orthopaedics [address] [id number] Nadia Rios PA-C [address] [place] [address] [place] [address] Your question regarding the metal allergy Social History Tobacco Use Types Packs/Day Years Used Date Smoking Tobacco: Never Alcohol Use Standard Drinks/Week Comments No 0 (1 standard drink = 0.6 oz pur e alcohol) Comments No Sex and Gender Information Value Date Recorded Sex Assigned at Not on file Legal Sex Female 7:34 AM EST Gender Identity Not on file Sexual Orientation Not on file documented as of this encounter Plan of Treatment Upcoming Encounters Date Type Department Care Team (Latest Contact Info) Description 08/23/2024 1:00 PM EDT Visit (SP) Office Hematology/Oncology [address] [facility] [place] [address] Curly Knapp [facility] 08/30/2024 1:00 PM EDT Visit (SP) Office Hematology/Oncology [address] [place] [address] Curly Knapp LMT Massage - patient will be in Lobby 09/07/2024 10:45 AM EDT Office Visit [facility] [address] [place] [address] 4 week follow up with lab 09/07/2024 11:00 AM EDT Visit (SP) Office Hematology/Oncology [address] [place] [address] [place] [address] Rahel Strauss APRN.MANAGER TRANSPORTATION [address] [facility] [place] [address] 4 week follow up with lab 09/13/2024 1:00 PM EDT Visit (SP) Office Hematology/Oncology [address] [place] [address] Curly Knapp LMT Massage - patient will be in Lobby 09/20/2024 1:00 PM EDT Visit (SP) Office Hematology/Oncology [address] [place] [address] Curly Knapp LMT Massage - patient will be in Lobby 09/27/2024 1:00 PM EDT Visit (SP) Office Hematology/Oncology [address] [facility] [address] Curly Knapp LMT Massage - patient will be in Lobby documented as of this encounter Visit Diagnoses Not on filedocumented in this encounter Care Teams Felling Bucking Supervisor Relationship Specialty Start Date End Date Carrie Anderson MD [address] [place] [phone] PCP - General Family Medicine 04/29/12 José Manuel Carrion DO [address] [place] [address] Consulting Hematology/Oncology 10/28/17 05/24/19 Alyssa Coronado, DIESEL MECHANIC.MANAGER TRANSPORTATION [address] [place] [address] [place] [address] Nurse Practitioner Hematology/Oncology 01/18/18 0 Marine Mccormack, EDISON [address] [place] [address] [place] [address] Specialty Chyron Operator Hematology/Oncology 03/16/19 05/24/19 Magda Mcdaniel RN [address] [place] [address] Specialty Chyron Operator Orthopedics 08/08/22 11/08/22 Filiberto Delcid MD [address] [place] [address] [place] [address] Physician Hematology/Oncology 08/14/23 Alyssa Coronado, DIESEL MECHANIC.MANAGER TRANSPORTATION [address] [place] [address] [place] [address] Nurse Practitioner Hematology/Oncology 08/14/23 Marine Mccormack, RN [address] [facility] [place] [address] Specialty Chyron Operator Hematology/Oncology 08/14/23 documented as of this encounter
--- OUTSIDE RECORDS SUMMARY | 2024-08-22 11:16 | XMS_ITS | Encounter Summary ---
Author Organization [facility] Address [address] [place] [address] Care Team Providers Care Oil Mixer Name Role Phone Carrie Anderson MD Primary Care Provider [phone] José Manuel Carrion DO Unavailable [phone] Alyssa Coronado PLATE EMBOSSER.COMMERCIAL SALES SPECIALIST Unavailable [phone] Marine Mccormack RN Unavailable [phone] Magda Mcdaniel RN Unavailable Filiberto Delcid MD Unavailable [phone] Alyssa Coronado PLATE EMBOSSER.COMMERCIAL SALES SPECIALIST Unavailable [phone] Marine Mccormack RN Unavailable [phone] Source Comments In the event this information is protected by the Federal Confidentiality of Alcohol and Drug AbusePatient Records regulations: The Federal rules restrict any use of the information to criminally investigate or prosecute any alcohol or drug abuse patient.[facility] Encounter Details Date Type Department Care Team (Late st Contact Info) Description 07/14/2017 Patient Msg Medical Records [address] [place] [address] Provider, [facility] Medical Education Program Social History Tobacco Use [...] hearing? Answer Date of Assessment Author No 04/07/2017 3:07 PM Ines Thacker (Rn)(Hist), RN * Are you blind or do you have serious difficulty seeing, even when wearing glasses? Answer Date of Assessment Author No 04/07/2017 3:07 PM Ines Thacker (Rn)(Hist), RN * Do you have serious difficulty walking or climbing stairs? Answer Date of Assessment Author No 04/07/2017 3:07 PM Ines Thacker (Rn)(Hist), RN * Do you have difficulty dressing or bathing? Answer Date of Assessment Author No 04/07/2017 3:07 PM Ines Thacker (Rn)(Hist), RN * Because of a physical, mental, or emotional condition, do you have difficulty doing errands alone such as visiting a doctor's office or shopping? Answer Date of Assessment Author No 04/07/2017 3:07 PM Ines Thacker (Rn)(Hist), RN documented as of this encounter Mental Status * Because of a physical, mental, or emotional condition, do you have serious difficulty concentrating, remembering, or making decisions? Answer Entry Date Author No 04/07/2017 3:07 PM Ines Thacker (Rn)(Hist), RN documented in this encounter Plan of Treatment Upcoming Encounters Date Type Department Care Team (Latest Contact Info) Description 08/23/2024 1:00 PM EDT Visit (SP) Office Hematology/Oncology [address] [place] [address] [place] [address] Curly Knapp LMT Massage - patient will be in Lobby 08/30/2024 1:00 PM EDT Visit (SP) Office Hematology/Oncology [address] [place] [address] [place] [address] Curly Knapp LMT Massage - patient will be in Lobby 09/07/2024 10:45 AM EDT Office Visit [facility] [address] [place] [address] 4 week follow up with lab 09/07/2024 11:00 AM EDT Visit (SP) Office Hematology/Oncology [address] [place] [address] Rahel Strauss APRN.COMMERCIAL SALES SPECIALIST [address] [facility] [place] [address] 4 week follow up with lab 09/13/2024 1:00 PM EDT Visit (SP) Office Hematology/Oncology [facility] [place] [place] [address] Curly Knapp LMT Massage - patient will be in Lobby 09/20/2024 1:00 PM EDT Visit (SP) Office Hematology/Oncology [place] [address] Curly Knapp LMT Massage - patient will be in Lobby 09/27/2024 1:00 PM EDT Visit (SP) Office Hematology/Oncology [facility] [place] [address] Curly Knapp LMT Massage - patient will be in Lobby documented as of this encounter Visit Diagnoses Not on filedocumented in this encounter Care Teams Oil Mixer Relationship Specialty Start Date End Date Carrie Anderson MD [address] [place] [phone] PCP - General Family Medicine 04/29/12 José Manuel Carrion DO [address] [place] [address] Consulting Hematology/Oncology 10/28/17 05/24/19 Alyssa Coronado APRN.COMMERCIAL SALES SPECIALIST [address] [place] [address] [place] [address] Nurse Practitioner Hematology/Oncology 01/18/18 0 Marine Mccormack, EDISON [address] [facility] [place] [address] Specialty Principal Hardware Architect Hematology/Oncology 03/16/19 05/24/19 Magda Mcdaniel RN [address] [place] [address] Specialty Principal Hardware Architect Orthopedics 08/08/22 11/08/22 Filiberto Delcid MD [address] [facility] [place] [address] Physician Hematology/Oncology 08/14/23 Alyssa Coronado APRN.COMMERCIAL SALES SPECIALIST [address] [facility] [place] [address] Nurse Practitioner Hematology/Oncology 08/14/23 Marine Mccormack, EDISON [address] [facility] [place] [address] Specialty Principal Hardware Architect Hematology/Oncology 08/14/23 documented as of this encounter
--- OUTSIDE RECORDS SUMMARY | 2024-08-22 11:16 | XMS_ITS | Encounter Summary ---
Author Organization [facility] Address [address] [place] [address] Care Team Providers Care Platen Grinder Name Role Phone Carrie Anderson MD Primary Care Provider [phone] José Manuel Carrion DO Unavailable [phone] Alyssa Coronado SPECIAL PROCEDURES TECH.LEAD INFRASTRUCTURE ARCHITECT Unavailable [phone] Marine Mccormack RN Unavailable [phone] Magda Mcdaniel RN Unavailable Filiberto Delcid MD Unavailable [phone] Alyssa Coronado SPECIAL PROCEDURES TECH.LEAD INFRASTRUCTURE ARCHITECT Unavailable [phone] Marine Mccormack RN Unavailable [phone] Source Comments In the event this information is protected by the Federal Confidentiality of Alcohol and Drug AbusePatient Records regulations: The Federal rules restrict any use of the information to criminally investigate or prosecute any alcohol or drug abuse patient.[facility] Encounter Details Date Type Department Care Team (Late st Contact Info) Description 07/14/2017 Patient Msg Medical Records [address] [place] [address] Provider, [facility] Medical Education Program Social History Tobacco [...] PM EDT Visit (SP) Office Hematology/Oncology [address] [place] [address] [place] [address] Curly Knapp LMT Massage - patient will be in Lobby 08/30/2024 1:00 PM EDT Visit (SP) Office Hematology/Oncology [address] [place] [address] [place] [address] Curly Knapp LMT Massage - patient will be in Lobby 09/07/2024 10:45 AM EDT Office Visit [facility] [address] [place] [address] 4 week follow up with lab 09/07/2024 11:00 AM EDT Visit (SP) Office Hematology/Oncology [address] [place] [address] Rahel Strauss APRN.LEAD INFRASTRUCTURE ARCHITECT [address] [facility] [place] [address] 4 week follow up with lab 09/13/2024 1:00 PM EDT Visit (SP) Office Hematology/Oncology [facility] [place] [address] Curly Knapp LMT Massage - patient will be in Lobby 09/20/2024 1:00 PM EDT Visit (SP) Office Hematology/Oncology [facility] [place] [address] Curly Knapp LMT Massage - patient will be in Lobby 09/27/2024 1:00 PM EDT Visit (SP) Office Hematology/Oncology [facility] [place] [address] Curly Knapp LMT Massage - patient will be in Lobby documented as of this encounter Visit Diagnoses Not on filedocumented in this encounter Care Teams Platen Grinder Relationship Specialty Start Date End Date Carrie Anderson MD [address] [place] [phone] PCP - General Family Medicine 04/29/12 José Manuel Carrion DO [address] [place] [address] Consulting Hematology/Oncology 10/28/17 05/24/19 Alyssa Coronado APRN.LEAD INFRASTRUCTURE ARCHITECT [address] [place] [address] [place] [address] Nurse Practitioner Hematology/Oncology 01/18/18 0 Marine Mccormack, EDISON [address] [place] [address] Specialty Mis Specialist Hematology/Oncology 03/16/19 05/24/19 Magda Mcdaniel RN [address] [place] [address] Specialty Mis Specialist Orthopedics 08/08/22 11/08/22 Filiberto Delcid MD [address] [place] [address] Physician Hematology/Oncology 08/14/23 Alyssa Coronado APRN.LEAD INFRASTRUCTURE ARCHITECT [address] [place] [address] Nurse Practitioner Hematology/Oncology 08/14/23 Marine Mccormack, EDISON [address] [place] [address] Specialty Mis Specialist Hematology/Oncology 08/14/23 documented as of this encounter
--- OUTSIDE RECORDS SUMMARY | 2024-08-22 11:16 | XMS_ITS | Encounter Summary ---
Author Organization [facility] Address [address] [place] [address] Care Team Providers Care Health Teacher Name Role Phone Carrie Anderson MD Primary Care Provider [phone] Filiberto Delcid MD Unavailable [phone] Alyssa Coronado APRN.CORPORATE PHYSICAL SECURITY SUPERVISOR Unavailable [phone] Marine Mccormack RN Unavailable [phone] Source Comments In the event this information is protected by the Federal Confidentiality of Alcohol and Drug AbusePatient Records regulations: The Federal rules restrict any use of the information to criminally investigate or prosecute any alcohol or drug abuse patient.[facility] Encounter Details Date Type Department Care Team (Latest Contact Info) Description 08/08/2024 Travel Social History Tobacco Use Types Packs/Day Years [...] is lower risk 5 08/24/2023 Data from: https://www.neighborhoodatlas.[facility]/. Last address used for calculation [address] [...] Mahsa Maldonado RN documented in this encounter Plan of Treatment Upcoming Encounters Date Type Department Care Team (Latest Contact Info) Description 08/23/2024 1:00 PM EDT Visit (SP) Office Hematology/Oncology [address] [facility] [place] [address] Curly Knapp LMT Massage - patient will be in Lobby 08/30/2024 1:00 PM EDT Visit (SP) Office Hematology/Oncology [address] [facility] [place] [address] Curly Knapp LMT Massage - patient will be in Lobby 09/07/2024 10:45 AM EDT Office Visit [facility] [address] [place] [address] 4 week follow up with lab 09/07/2024 11:00 AM EDT Visit (SP) Office Hematology/Oncology [address] [place] [address] Rahel Strauss APRN.CORPORATE PHYSICAL SECURITY SUPERVISOR [address] [facility] [place] [address] 4 week follow up with lab 09/13/2024 1:00 PM EDT Visit (SP) Office Hematology/Oncology [facility] [place] [address] Curly Knapp LMT Massage - patient will be in Lobby 09/20/2024 1:00 PM EDT Visit (SP) Office Hematology/Oncology [facility] [place] [address] Curly Knapp LMSarwat Massage - patient will be in Lobby 09/27/2024 1:00 PM EDT Visit (SP) Office Hematology/Oncology [facility] [place] [address] Curly Knapp LMSarwat Massage - patient will be in Lobby documented as of this encounter Visit Diagnoses Not on filedocumented in this encounter Care Teams Health Teacher Relationship Specialty Start Date End Date Carrie Anderson MD [address] [place] [phone] PCP - General Family Medicine 04/29/12 Filiberto Delcid MD [address] [place] [address] [place] [address] Physician Hematology/Oncology 08/14/23 Alyssa Coronado APRN.CORPORATE PHYSICAL SECURITY SUPERVISOR [address] [place] [address] [place] [address] Nurse Practitioner Hematology/Oncology 08/14/23 Marine Mccormack, EDISON [address] [place] [address] Specialty Brim Ironer Hand Hematology/Oncology 08/14/23 documented as of this encounter
--- OUTSIDE RECORDS SUMMARY | 2024-08-22 11:16 | XMS_ITS | Encounter Summary ---
Author Organization [facility] Address [address] [place] [address] Care Team Providers Care Mc Kay Machine Operator Name Role Phone Carrie Anderson MD Primary Care Provider [phone] Magda Mcdaniel RN Unavailable Filiberto Delicd MD Unavailable [phone] Alyssa Coronado APRN.FREEZER TUNNEL OPERATOR Unavailable [phone] Marine Mccormack RN Unavailable [phone] Source Comments In the event this information is protected by the Federal Confidentiality of Alcohol and Drug AbusePatient Records regulations: The Federal rules restrict any use of the information to criminally investigate or prosecute any alcohol or drug abuse patient.[facility] Encounter Details Date Type Department Care Team (Late st Contact Info) Description 07/03/2021 Patient Msg Cancer Appts [address] [facility] [address] Provider, Ccf Appointment Social History Tobacco Use Types Packs/Day Years Used Date Smoking Tobacco: Never Smokeless Tobacco: Never Alcohol Use Standard Drinks/Week Comments No 0 (1 standard drink = 0.6 oz pur e alcohol) PHQ-2 Answer Date Recorded PHQ-2 score 2 06/30/2021 Area Deprivation Index Answer Date Sriram rded National Score (1-100), lower number is lower ri sk Not on file 02/05/2020 State Score (1-10), lower number is lower risk N ot on file 02/05/2020 Data from: https://www.neighborhoodatlas.medicine.[facility]/. Last address used for calculation Not on file 02/05/2020 Comments No Sex and Gender Information Value Date Recorded Sex Assigned at Not on file Legal Sex Female 7:34 AM EST Gender Identity Not on file Sexual Orientation Not on file COVID-19 Exposure Response Date Recorded In the last 10 days, have yo u been in contact with someone who was confirmed or suspected to have Coronavirus/COVID-19? No / Unsure 07/01/2021 1:57 PM EDT documented as of this encounter Functional Status [...] 1:00 PM EDT Visit (SP) Office Hematology/Oncology [address] [place] [address] [place] [address] Curly Knapp LMT Massage [facility]00 PM EDT Visit (SP) Office Hematology/Oncology [address] [place] [address] Curly Knapp LMT Massage - [facility] 09/07/2024 10:45 AM EDT Office Visit [facility] [address] [place] [address] 4 week follow up with lab 09/07/2024 11:00 AM EDT Visit (SP) Office Hematology/Oncology [address] [place] [address] Rahel Strauss APRN.FREEZER TUNNEL OPERATOR [address] [place] [address] 4 week follow up with lab 09/13/2024 1:00 PM EDT Visit (SP) Office Hematology/Oncology [address] [place] [address] Curly Knapp LMT Massage [facility] 09/20/[facility] 1:00 PM EDT Visit (SP) Office Hematology/Oncology [address] [place] [address] Curly Knapp LMT Massage - [facility] 09/27/[facility]24 1:00 PM EDT Visit (SP) Office Hematology/Oncology [address] [place] [address] [place] [address] Curly Knapp LMT Massage - patient will be in [facility] documented as of this encounter Visit Diagnoses Not on filedocumented in this encounter Care Teams Mc Kay Machine Operator Relationship Specialty Start Date End Date Carrie Anderson MD [address] [place] [phone] PCP - General Family Medicine 04/29/12 Magda Mcdaniel, RN [address] [place] [address] Specialty Private Wealth Advisor Orthopedics 08/08/22 11/08/22 Filiberto Delcid MD [address] [facility] [place] [address] Physician Hematology/Oncology 08/14/23 Alyssa Coronado APRN.FREEZER TUNNEL OPERATOR [address] [facility] [place] [address] Nurse Practitioner Hematology/Oncology 08/14/23 Marine Mccormack, EDISON [address] [facility] [place] [address] Specialty Private Wealth Advisor Hematology/Oncology 08/14/23 documented as of this encounter
--- OUTSIDE RECORDS SUMMARY | 2024-08-22 11:16 | XMS_ITS | Clinical Summary ---
Author Organization [facility] Address [id number] [address] [place] [address] Care Team Providers Care Slat Basket Top Maker Name Role Phone Carrie Anderson MD Primary Care Provider [phone] Active Problems Problem Noted Date Diagnosed Date Generalized anxiety disorder 09/01/2018 Recurrent major depressive disorder, in partial remission 09/01/2018 Adjustment disorder with mixed anxiety and depre ssed mood 09/01/2018 Social History Tobacco Use Types Packs/Day Years Used Date Smoking Tobacco: Never Assessed Childcare Answer Date Recorded Childcare Unknown 08/11/2018 Employment Answer Date Recorded Employment Unknown 08/11/2018 Purpose - Life Answer Date Recorded Purpose and direction in life Unknown Comments Unknown Sex and Gender Information Value Date Recorded Sex Assigned at Not on file Legal Sex Female 12:06 PM EDT Gender Identity Not on file Sexual Orientation Not on file Plan of Treatment Health Maintenance Due Date Last Done Comments Depression Screening 1961 Tobacco Screening 1961 DTaP,Tdap and Td Vaccines (1 - Tdap) 1968 Zoster (Shingles) Vaccine (1 of 2) 1999 Fall Risk Screening 2014 Influenza Vaccine 10/31/2024 12/11/2017, 01/18/2009 Medical Devices Not on file Insurance [employer] MEDICARE Care Teams Slat Basket Top Maker Relationship Specialty Start Date End Date Carrie Anderson MD [address] [place] [address] PCP - General 06/15/18
--- OUTSIDE RECORDS SUMMARY | 2024-08-22 11:16 | XMS_ITS | Encounter Summary ---
Author Organization [facility] Address [address] [place] [address] Care Team Providers Care Loom Fixer Supervisor Name Role Phone Carrie Anderson MD Primary Care Provider [phone] Filiberto Delcid MD Unavailable [phone] Alyssa Coronado APRN.REAL ESTATE MARKETING COORDINATOR Unavailable [phone] Marine Mccormack RN Unavailable [phone] Source Comments In the event this information is protected by the Federal Confidentiality of Alcohol and Drug AbusePatient Records regulations: The Federal rules restrict any use of the information to criminally investigate or prosecute any alcohol or drug abuse patient.[facility] Encounter Details Date Type Department Care Team (Late st Contact Info) Description 11/17/2022 Patient Msg Pre Anesthesia [address] [place], [place] [id number] Provider, Ccf PACC appt check in Social History Tobacco Use Types Packs/Day Years Used Date Smoking Tobacco: Never Smokeless Tobacco: Never Alcohol Use Standard Drinks/Week Comments No 0 (1 standard drink = 0.6 oz pur e alcohol) PHQ-2 Answer Date Recorded PHQ-2 score 0 09/04/2022 Area Deprivation Index Answer Date Sriram rded National Score (1-100), lower number is lower ri sk 71 11/18/2022 State Score (1-10), lower number is lower risk 5 11/18/2022 Data from: https://www.neighborhoodatlas.medicine.[facility]/. Last address used for calculation [address] 11/18/2022 Comments No Sex and Gender Information Value [...] 1:00 PM EDT Visit (SP) Office Hematology/Oncology [address] [place] [address] [place] [address] Curly Knapp LMT Massage - patient will be in [facility] 08/30/2024 1:00 PM EDT Visit (SP) Office Hematology/Oncology [address] [place] [address] [place] [address] Curly Knapp LMT Massage - patient will be in [facility] 09/07/2024 10:45 AM EDT Office Visit [facility] [address] [place] [address] 4 week follow up with lab 09/07/2024 11:00 AM EDT Visit (SP) Office Hematology/Oncology [address] [place] [address] Rahel Strauss APRN.REAL ESTATE MARKETING COORDINATOR [address] [place] [address] 4 week follow up with lab 09/13/2024 1:00 PM EDT Visit (SP) Office Hematology/Oncology [address] [place] [address] Curly Knapp LMT Massage - patient will be in Lobby 09/20/2024 1:00 PM EDT Visit (SP) Office Hematology/Oncology [address] [place] [address] Curly Knapp LMT Massage - patient will be in Lobby 09/27/2024 1:00 PM EDT Visit (SP) Office Hematology/Oncology [facility] [place] [address] Curly Knapp LMT Massage - patient will be in Lobby documented as of this encounter Visit Diagnoses Not on filedocumented in this encounter Care Teams Loom Fixer Supervisor Relationship Specialty Start Date End Date Carrie Anderson MD [address] [place] [phone] PCP - General Family Medicine 04/29/12 Filiberto Delcid MD [facility] [place] [address] Physician Hematology/Oncology 08/14/23 Alyssa Coronado, PERIOPERATIVE EDUCATOR.REAL ESTATE MARKETING COORDINATOR [facility] [place] [address] Nurse Practitioner Hematology/Oncology 08/14/23 Marine Mccormack, RN [address] [place] [address] [address] [place] [id number] Specialty Nematologist Hematology/Oncology 08/14/23 documented as of this encounter
--- OUTSIDE RECORDS SUMMARY | 2024-08-22 11:16 | XMS_ITS | Encounter Summary ---
Author Organization [facility] Address [address] [place] [address] Care Team Providers Care Surveyor Oil Well Directional Name Role Phone Carrie Anderson MD Primary Care Provider [phone] José Manuel Carrion DO Unavailable [phone] Alyssa Coronado PRINT BUYER.PLASTICS FACTORY WORKER Unavailable [phone] Marine Mccormack RN Unavailable [phone] Magda Mcdaniel RN Unavailable Filiberto Delcid MD Unavailable [phone] Alyssa Coronado PRINT BUYER.PLASTICS FACTORY WORKER Unavailable [phone] Marine Mccormack RN Unavailable [phone] Source Comments In the event this information is protected by the Federal Confidentiality of Alcohol and Drug AbusePatient Records regulations: The Federal rules restrict any use of the information to criminally investigate or prosecute any alcohol or drug abuse patient.[facility] Encounter Details Date Type Department Care Team (Late st Contact Info) Description 07/29/2017 Patient Msg Medical Records [address] [place] [address] Provider, Ccf [facility] Medical Education Program Social History [...] 1:00 PM EDT Visit (SP) Office Hematology/Oncology [address] [place] [address] [place] [address] Curly Knapp LMT Massage - patient will be in Lobby 08/30/2024 1:00 PM EDT Visit (SP) Office Hematology/Oncology [address] [place] [address] [place] [address] Curly Knapp LMT Massage - patient will be in Lobby 09/07/2024 10:45 AM EDT Office Visit [facility] Laboratory [address] [place] [address] 4 week follow up with lab 09/07/2024 11:00 AM EDT Visit (SP) Office Hematology/Oncology [address] [place] [address] Rahel Strauss APRN.PLASTICS FACTORY WORKER [address] [place] [address] 4 week follow up with lab 09/13/2024 1:00 PM EDT Visit (SP) Office Hematology/Oncology [facility] [place] [address] Curly Knapp LMT Massage - patient will be in Lobby 09/20/2024 1:00 PM EDT Visit (SP) Office Hematology/Oncology [facility] [place] [address] Curly Knapp LMT Massage - patient will be in Lobby 09/27/2024 1:00 PM EDT Visit (SP) Office Hematology/Oncology [facility] [place] [address] Curly Knapp LMT Massage - patient will be in Lobby documented as of this encounter Visit Diagnoses Not on filedocumented in this encounter Care Teams Surveyor Oil Well Directional Relationship Specialty Start Date End Date Carrie Anderson MD [address] [place] [phone] PCP - General Family Medicine 04/29/12 José Manuel Carrion DO [address] [place] [address] Consulting Hematology/Oncology 10/28/17 05/24/19 Alyssa Coronado APRN.PLASTICS FACTORY WORKER [address] [place] [address] [place] [address] Nurse Practitioner Hematology/Oncology 01/18/18 0 Marine Mccormack, EDISON [address] [place] [place] [address] Specialty Projector Booth Operator Hematology/Oncology 03/16/19 05/24/19 Magda Mcdaniel RN [address] [place] [address] Specialty Projector Booth Operator Orthopedics 08/08/22 11/08/22 Filiberto Delcid MD [address] [place] [address] Physician Hematology/Oncology 08/14/23 Alyssa Coronado APRN.PLASTICS FACTORY WORKER [address] [place] [place] [address] Nurse Practitioner Hematology/Oncology 08/14/23 Marine Mccormack, EDISON [address] [place] [address] Specialty Projector Booth Operator Hematology/Oncology 08/14/23 documented as of this encounter
--- OUTSIDE RECORDS SUMMARY | 2024-08-22 11:16 | XMS_ITS | Encounter Summary ---
Author Organization [facility] Address [address] [place] [address] Care Team Providers Care Ditching Machine Engineer Name Role Phone Carrie Anderson MD Primary Care Provider [phone] Magda Mcdaniel RN Unavailable Filiberto Delcid MD Unavailable [phone] Alyssa Coronado APRN.CHIEF FUNDRAISING OFFICER Unavailable Marine Mccormack RN Unavailable [phone] Source Comments In the event this information is protected by the Federal Confidentiality of Alcohol and Drug AbusePatient Records regulations: The Federal rules restrict any use of the information to criminally investigate or prosecute any alcohol or drug abuse patient.[facility] Encounter Details Date Type Department Care Team (Late st Contact Info) Description 07/25/2022 Patient Msg Spine [place] [address] [place] [address] Provider, Ccf Important Reminder for Preparing Your Skin for Surgery Social History Tobacco Use Types Packs/Day Years Used Date Smoking Tobacco: Never Smokeless Tobacco: Never Alcohol Use Standard Drinks/Week Comments No 0 (1 standard drink = 0.6 oz pur e alcohol) PHQ-2 Answer Date Recorded PHQ-2 score 2 06/30/2021 Area Deprivation Index Answer Date Sriram rded National Score (1-100), lower number is lower ri sk 85 07/01/2022 State Score (1-10), lower number is lower risk N ot on file 07/01/2022 Data from: https://www.neighborhoodatlas.medicine.[facility]/. Last address used for calculation [address] 07/01/2022 Comments No Sex and Gender Information Value [...] 1:00 PM EDT Visit (SP) Office Hematology/Oncology [address] [place] [address] [place] [address] Curly Knapp LMT Massage - patient will be in Lobby 08/30/2024 1:00 PM EDT Visit (SP) Office Hematology/Oncology [address] [place] [address] Curly Knapp LMT Massage [facility] 10:45 AM EDT Office Visit [facility] [address] [place] [address] 4 week follow up with lab 09/07/2024 11:00 AM EDT Visit (SP) Office Hematology/Oncology [address] [place] [address] [place] [address] Rahel Strauss APRN.CHIEF FUNDRAISING OFFICER [address] [facility] [place] [address] 4 week follow up with lab 09/13/2024 1:00 PM EDT Visit (SP) Office Hematology/Oncology [address] [place] [address] [place] [address] Curly Knapp LMT Massage - [facility] 09/20/[facility] 1:00 PM EDT Visit (SP) Office Hematology/Oncology [address] [place] [address] [place] [address] Curly Knapp LMT Massage - [facility] 09/27/20[facility] 1:00 PM EDT Visit (SP) Office Hematology/Oncology [address] [place] [address] [place] [address] Curly Knapp LMT Massage - patient will be in [facility] documented as of this encounter Visit Diagnoses Not on filedocumented in this encounter Care Teams Ditching Machine Engineer Relationship Specialty Start Date End Date Carrie Anderson MD [address] [place] [phone] PCP - General Family Medicine 04/29/12 Magda Mcdaniel, EDISON [address] [place] [address] Specialty Arabic Linguist Orthopedics 08/08/22 11/08/22 Filiberto Delcid MD [address] [place] [address] [place] [address] Physician Hematology/Oncology 08/14/23 Alyssa Coronado APRN.CHIEF FUNDRAISING OFFICER [address] [facility] [place] [address] Nurse Practitioner Hematology/Oncology 08/14/23 Marine Mccormack, EDISON [address] [facility] [place] [address] Specialty Arabic Linguist Hematology/Oncology 08/14/23 documented as of this encounter
--- OUTSIDE RECORDS SUMMARY | 2024-08-22 11:16 | XMS_ITS | Clinical Summary ---
Author Organization [facility] Address [address] [place] [address] Care Team Providers Care Architectural Project Captain Name Role Phone Unavailable Primary Care Provider Unavailabl e Social History Tobacco Use Types Packs/Day Years Used Date Smoking Tobacco: Never Assessed Comments Unknown Sex and Gender Information Value Date Recorded Sex Assigned at Not on file Legal Sex Female 7:03 PM EDT Gender Identity Not on file Sexual Orientation Not on file Plan of Treatment Not on file Advance Directives Documents on File Type Date Recorded Patient Weight Loss Sales Consultant Expl anation Advance Directives and Ryland benavides Will 09/04/2017 2017-09-04 DNR
--- OUTSIDE RECORDS SUMMARY | 2024-08-22 11:16 | XMS_ITS | Encounter Summary ---
Author Organization [facility] Address [address] [place] [address] Care Team Providers Care Surveillance Observer Name Role Phone Carrie Anderson MD Primary Care Provider [phone] José Manuel Carrion DO Unavailable [phone] Alyssa Coronado CUTTER AND PASTER PRESS CLIPPINGS.CAR RENTAL SALES ASSISTANT Unavailable [phone] Marine Mccormack RN Unavailable [phone] Magda Mcdaniel RN Unavailable Filiberto Delcid MD Unavailable [phone] Alyssa Coronado CUTTER AND PASTER PRESS CLIPPINGS.CAR RENTAL SALES ASSISTANT Unavailable [phone] Marine Mccormack RN Unavailable [phone] Source Comments In the event this information is protected by the Federal Confidentiality of Alcohol and Drug AbusePatient Records regulations: The Federal rules restrict any use of the information to criminally investigate or prosecute any alcohol or drug abuse patient.[facility] Encounter Details Date Type Department Care Team (Late st Contact Info) Description 02/09/2017 Get Medical Advice Orthopaedics [address] [id number] Adonis King MD [address] [facility] [address] [place] [address] RE: Upcoming Appointment Question Social History Tobacco Use Types Packs/Day Years [...] No 12/17/2016 12:02 PM EDT Zahira Johnson APRN.CAR RENTAL SALES ASSISTANT * Are you blind or do you have serious difficulty seeing, even when wearing glasses? Answer Date of Assessment Author No 12/17/2016 12:02 PM EDT Zahira Johnson APRN.CAR RENTAL SALES ASSISTANT * Do you have serious difficulty walking or climbing stairs? Answer Date of Assessment Author Yes 12/17/2016 12:02 PM EDT Zahira Johnson APRN.CAR RENTAL SALES ASSISTANT * Do you have difficulty dressing or bathing? Answer Date of Assessment Author Yes 12/17/2016 12:02 PM EDT Zahira Johnson APRN.CAR RENTAL SALES ASSISTANT * Because of a physical, mental, or emotional condition, do you have difficulty doing errands alone such as visiting a doctor's office or shopping? Answer Date of Assessment Author Yes 12/17/2016 12:02 PM EDT Zahira Johnson APRN.CAR RENTAL SALES ASSISTANT documented as of this encounter Mental Status * Because of a physical, mental, or emotional condition, do you have serious difficulty concentrating, remembering, or making decisions? Answer Entry Date Author No 12/17/2016 12:02 PM EDT Zahira Johnson APRN.CAR RENTAL SALES ASSISTANT documented in this encounter Plan of Treatment Upcoming Encounters Date Type Department Care Team (Latest Contact Info) Description 08/23/2024 1:00 PM EDT Visit (SP) Office Hematology/Oncology [address] [place] [address] [place] [address] Curly Knapp LMT Massage - patient will be in Lobby 08/30/2024 1:00 PM EDT Visit (SP) Office Hematology/Oncology [address] [facility] [place] [address] Curly Knapp LMT Massage - patient will be in [facility] 09/07/2024 10:45 AM EDT Office Visit [facility] Laboratory [address] [facility] [place] [address] 4 week follow up with lab 09/07/2024 11:00 AM EDT Visit (SP) Office Hematology/Oncology [address] [facility] [place] [address] Rahel Strauss APRN.CAR RENTAL SALES ASSISTANT [address] [facility] [place] [address] 4 week follow up with lab 09/13/2024 1:00 PM EDT Visit (SP) Office Hematology/Oncology [address] [facility] [place] [address] Curly Knapp LMT Massage - patient will be in [facility] 09/20/2024 1:00 PM EDT Visit (SP) Office Hematology/Oncology [address] [facility] [place] [address] Curly Knapp LMT Massage - patient will be in [facility] 09/27/2024 1:00 PM EDT Visit (SP) Office Hematology/Oncology [address] [facility] [place] [address] Curly Knapp LMT Massage - patient will be in [facility] documented as of this encounter Visit Diagnoses Not on filedocumented in this encounter Care Teams Surveillance Observer Relationship Specialty Start Date End Date Carrie Anderson MD [address] [place] [phone] PCP - General Family Medicine 04/29/12 José Manuel Carrion DO [address] [place] [phone] Consulting Hematology/Oncology 10/28/17 05/24/19 Alyssa Coronado APRN.CAR RENTAL SALES ASSISTANT [address] [facility] [place] [address] Nurse Practitioner Hematology/Oncology 01/18/18 0 Marine Mccormack, EDISON [address] [facility] [place] [address] Specialty Imaging Aide Hematology/Oncology 03/16/19 05/24/19 Magda Mcdaniel, EDISON [address] [place] [address] Specialty Imaging Aide Orthopedics 08/08/22 11/08/22 Filiberto Delcid MD [address] [facility] [place] [address] Physician Hematology/Oncology 08/14/23 Alyssa Coronado APRN.CAR RENTAL SALES ASSISTANT [address] [place] [address] [place] [address] Nurse Practitioner Hematology/Oncology 08/14/23 Marine Mccormack, EDISON [address] [facility] [place] [address] Specialty Imaging Aide Hematology/Oncology 08/14/23 documented as of this encounter
--- OUTSIDE RECORDS SUMMARY | 2024-08-22 11:16 | XMS_ITS | Encounter Summary ---
Author Organization [facility] Address [address] [place] [address] Care Team Providers Care Watch Engine Operator Name Role Phone Carrie Anderson MD Primary Care Provider [phone] José Manuel Carrion DO Unavailable [phone] Alyssa Coronado PROCESS TECHNICIAN.COOKIE BREAKER Unavailable [phone] Marine Mccormack RN Unavailable [phone] Magda Mcdaniel RN Unavailable Filiberto Delcid MD Unavailable [phone] Alyssa Coronado PROCESS TECHNICIAN.COOKIE BREAKER Unavailable [phone] Marine Mccormack RN Unavailable [phone] Source Comments In the event this information is protected by the Federal Confidentiality of Alcohol and Drug AbusePatient Records regulations: The Federal rules restrict any use of the information to criminally investigate or prosecute any alcohol or drug abuse patient.[facility] Encounter Details Date Type Department Care Team (Late st Contact Info) Description 11/22/2016 Patient Msg Medical Records [address] [place] [address] Provider, [facility] Your [facility] Medical Education Program Social [...] PM EDT Visit (SP) Office Hematology/Oncology [address] [facility] [place] [address] Curly Knapp LMT Massage - patient will be in Lobby 08/30/2024 1:00 PM EDT Visit (SP) Office Hematology/Oncology [address] [facility] [place] [address] Curly Knapp LMT Massage - patient will be in Lobby 09/07/2024 10:45 AM EDT Office Visit [facility] [address] [place] [address] 4 week follow up with lab 09/07/2024 11:00 AM EDT Visit (SP) Office Hematology/Oncology [address] [place] [address] Rahel Strauss APRN.COOKIE BREAKER [address] [place] [address] 4 week follow up with lab 09/13/2024 1:00 PM EDT Visit (SP) Office Hematology/Oncology [facility] [place] [address] Curly Knapp LMT Massage - patient will be in Lobby 09/20/2024 1:00 PM EDT Visit (SP) Office Hematology/Oncology [facility] [place] [address] Curly Knapp LMT Massage - patient will be in Lobby 09/27/2024 1:00 PM EDT Visit (SP) Office Hematology/Oncology [facility] [place] [address] Ra, Martricia, LMT Massage - patient will be in Lobby documented as of this encounter Visit Diagnoses Not on filedocumented in this encounter Care Teams Watch Engine Operator Relationship Specialty Start Date End Date Carrie Anderson MD [address] [place] [id number] PCP - General Family Medicine 04/29/12 José Manuel Carrion DO [address] [place] [phone] Consulting Hematology/Oncology 10/28/17 05/24/19 Alyssa Coronado, SHAHID.COOKIE BREAKER [address] [facility] [place] [address] Nurse Practitioner Hematology/Oncology 01/18/18 0 Marine Mccormack, EDISON [address] [facility] [place] [address] Specialty Hunting And Fishing Guide Hematology/Oncology 03/16/19 05/24/19 Magda Mcdaniel, EDISON [address] [place] [address] Specialty Hunting And Fishing Guide Orthopedics 08/08/22 11/08/22 Filiberto Delcid MD [address] [facility] [place] [address] Physician Hematology/Oncology 08/14/23 Alyssa Coronado, PROCESS TECHNICIAN.COOKIE BREAKER [address] [place] [address] Nurse Practitioner Hematology/Oncology 08/14/23 Marine Mccormack, RN [address] [place] [address] Specialty Hunting And Fishing Guide Hematology/Oncology 08/14/23 documented as of this encounter
--- OUTSIDE RECORDS SUMMARY | 2024-08-22 11:16 | XMS_ITS | Encounter Summary ---
Author Organization [facility] Address [address] [place] [address] Care Team Providers Care Behavioral Modification Assistant Name Role Phone Carrie Anderson MD Primary Care Provider [phone] José Manuel Carrion DO Unavailable [phone] Alyssa Coronado DELIVERY NURSE.CONTROL CLERK REPAIRS Unavailable [phone] Marine Mccormack RN Unavailable [phone] Magda Mcdanile RN Unavailable Filiberto Delcid MD Unavailable [phone] Alyssa Coronado DELIVERY NURSE.CONTROL CLERK REPAIRS Unavailable [phone] Marine Mccormack RN Unavailable [phone] Source Comments In the event this information is protected by the Federal Confidentiality of Alcohol and Drug AbusePatient Records regulations: The Federal rules restrict any use of the information to criminally investigate or prosecute any alcohol or drug abuse patient.[facility] Encounter Details Date Type Department Care Team (Late st Contact Info) Description 11/21/2016 Patient Msg Medical Records [address] [place] [address] Provider, [facility] Your [facility] Medical Education Program Social History Tobacco Use [...] [address] [facility] [place] [address] Curly Knapp LMT Massage - patient will be in Lobby 08/30/2024 1:00 PM EDT Visit (SP) Office Hematology/Oncology [address] [facility] [place] [address] Curly Knapp LMT Massage - patient will be in Lobby 09/07/2024 10:45 AM EDT Office Visit [facility] Laboratory [address] [facility] [address] 4 week follow up with lab 09/07/2024 11:00 AM EDT Visit (SP) Office Hematology/Oncology [address] [place] [address] Rahel Strauss APRN.CONTROL CLERK REPAIRS [address] [place] [address] 4 week follow up with lab 09/13/2024 1:00 PM EDT Visit (SP) Office Hematology/Oncology [facility] [place] [address] Curly Knapp LMT Massage - patient will be in Lobby 09/20/2024 1:00 PM EDT Visit (SP) Office Hematology/Oncology [facility] [place] [address] Curly Knapp LMT Massage - patient will be in Lobby 09/27/2024 1:00 PM EDT Visit (SP) Office Hematology/Oncology [facility] [place] [address] Ra, Martricia, LMT Massage - patient will be in Lobby documented as of this encounter Visit Diagnoses Not on filedocumented in this encounter Care Teams Behavioral Modification Assistant Relationship Specialty Start Date End Date Carrie Anderson MD [address] [place] [facility] [place] [address] PCP - General Family Medicine 04/29/12 José Manuel Carrion DO [address] [place] [facility] [place] [phone] Consulting Hematology/Oncology 10/28/17 05/24/19 Alyssa Coronado, SHAHID.CONTROL CLERK REPAIRS [address] [facility] [place] [address] Nurse Practitioner Hematology/Oncology 01/18/18 0 Marine Mccormack, EDISON [address] [facility] [place] [address] Specialty Knife Machine Operator Hematology/Oncology 03/16/19 05/24/19 Magda Mcdaniel, EDISON [address] [place] [address] Specialty Knife Machine Operator Orthopedics 08/08/22 11/08/22 Filiberto Delcid MD [address] [facility] [place] [address] Physician Hematology/Oncology 08/14/23 Alyssa Coronado, DELIVERY NURSE.CONTROL CLERK REPAIRS [address] [place] [address] Nurse Practitioner Hematology/Oncology 08/14/23 Marine Mccormack, RN [address] [facility] [address] Specialty Knife Machine Operator Hematology/Oncology 08/14/23 documented as of this encounter
--- OUTSIDE RECORDS SUMMARY | 2024-08-22 11:16 | XMS_ITS | Encounter Summary ---
Author Organization [facility] Address [facility] [place] [address] Care Team Providers Care Microbiology Manager Name Role Phone Carrie Anderson MD Primary Care Provider [phone] José Manuel Carrion DO Unavailable [phone] Alyssa Coronado HOMEMAKER COMPANION.FISH TRAPPER Unavailable [phone] Marine Mccormack RN Unavailable [phone] Magda Mcdaniel RN Unavailable Filiberto Delcid MD Unavailable [phone] Alyssa Coronado HOMEMAKER COMPANION.FISH TRAPPER Unavailable [phone] Marine Mccormack RN Unavailable [phone] Source Comments In the event this information is protected by the Federal Confidentiality of Alcohol and Drug AbusePatient Records regulations: The Federal rules restrict any use of the information to criminally investigate or prosecute any alcohol or drug abuse patient.[facility] Encounter Details Date Type Department Care Team (Late st Contact Info) Description 01/06/2017 Patient Msg Orthopaedics [address] [id number] Nadia Rios PA-C [address] [place] [address] weight bearing status Social History Tobacco Use Types Packs/Day Years [...] No 12/17/2016 12:02 PM EDT Zahira Johnson APRN.FISH TRAPPER * Are you blind or do you have serious difficulty seeing, even when wearing glasses? Answer Date of Assessment Author No 12/17/2016 12:02 PM EDT Zahira Johnson APRN.FISH TRAPPER * Do you have serious difficulty walking or climbing stairs? Answer Date of Assessment Author Yes 12/17/2016 12:02 PM EDT Zahira Johnson APRN.FISH TRAPPER * Do you have difficulty dressing or bathing? Answer Date of Assessment Author Yes 12/17/2016 12:02 PM EDT Zahira Johnson APRN.FISH TRAPPER * Because of a physical, mental, or emotional condition, do you have difficulty doing errands alone such as visiting a doctor's office or shopping? Answer Date of Assessment Author Yes 12/17/2016 12:02 PM EDT Zahira Johnson APRN.FISH TRAPPER documented as of this encounter Mental Status * Because of a physical, mental, or emotional condition, do you have serious difficulty concentrating, remembering, or making decisions? Answer Entry Date Author No 12/17/2016 12:02 PM EDT Zahira Johnson APRN.FISH TRAPPER documented in this encounter Plan of Treatment Upcoming Encounters Date Type Department Care Team (Latest Contact Info) Description 08/23/2024 1:00 PM EDT Visit (SP) Office Hematology/Oncology [address] [place] [address] [place] [address] Curly Knapp LMT Massage - patient will be in Lobby 08/30/2024 1:00 PM EDT Visit (SP) Office Hematology/Oncology [address] [facility] [place] [address] Curly Knapp LMT Massage - patient will be in [facility] 09/07/2024 10:45 AM EDT Office Visit [facility] Laboratory [address] [facility] [place] [address] 4 week follow up with lab 09/07/2024 11:00 AM EDT Visit (SP) Office Hematology/Oncology [address] [facility] [place] [address] Rahel Strauss APRN.FISH TRAPPER [address] [facility] [place] [address] 4 week follow up with lab 09/13/2024 1:00 PM EDT Visit (SP) Office Hematology/Oncology [address] [facility] [place] [address] Curly Knapp LMT Massage - patient will be in [facility] 09/20/2024 1:00 PM EDT Visit (SP) Office Hematology/Oncology [address] [facility] [place] [address] Curly Knapp LMT Massage - patient will be in [place] [place] 09/27/2024 1:00 PM EDT Visit (SP) Office Hematology/Oncology [address] [facility] [place] [address] Curly Knapp LMT Massage - patient will be in [place] [place] documented as of this encounter Visit Diagnoses Not on filedocumented in this encounter Care Teams Microbiology Manager Relationship Specialty Start Date End Date Carrie Anderson MD [address] [place] [phone] PCP - General Family Medicine 04/29/12 José Manuel Carrion DO [address] [place] [phone] Consulting Hematology/Oncology 10/28/17 05/24/19 Alyssa Coronado APRN.FISH TRAPPER [address] [facility] [place] [address] Nurse Practitioner Hematology/Oncology 01/18/18 0 Marine Mccormack, EDISON [address] [facility] [place] [address] Specialty Special Education Preschool Teacher Hematology/Oncology 03/16/19 05/24/19 Magda Mcdaniel, EDISON [address] [place] [address] Specialty Special Education Preschool Teacher Orthopedics 08/08/22 11/08/22 Filiberto Delcid MD [address] [facility] [place] [address] Physician Hematology/Oncology 08/14/23 Alyssa Coronado APRN.FISH TRAPPER [address] [place] [address] [place] [address] Nurse Practitioner Hematology/Oncology 08/14/23 Marine Mccormack, EDISON [address] [facility] [place] [address] Specialty Special Education Preschool Teacher Hematology/Oncology 08/14/23 documented as of this encounter
--- OUTSIDE RECORDS SUMMARY | 2024-08-22 11:16 | XMS_ITS | Encounter Summary ---
Author Organization [facility] Address [address] [place] [address] Care Team Providers Care Powerhouse Mechanic Supervisor Name Role Phone Carrie Anderson MD Primary Care Provider [phone] José Manuel Carrion DO Unavailable [phone] Alyssa Coronado STRAP FOLDING MACHINE OPERATOR.SPECIMEN TECHNICIAN Unavailable [phone] Marine Mccormack RN Unavailable [phone] Magda Mcdaniel RN Unavailable Filiberto Delcid MD Unavailable [phone] Alyssa Coronado STRAP FOLDING MACHINE OPERATOR.SPECIMEN TECHNICIAN Unavailable [phone] Marine Mccormack RN Unavailable [phone] Source Comments In the event this information is protected by the Federal Confidentiality of Alcohol and Drug AbusePatient Records regulations: The Federal rules restrict any use of the information to criminally investigate or prosecute any alcohol or drug abuse patient.[facility] Encounter Details Date Type Department Care Team (Late st Contact Info) Description 03/04/2017 Patient Msg Medical Records [address] [place] [address] Provider, [facility] Your [facility] Medical Education Program Social History Tobacco Use [...] No 12/17/2016 12:02 PM EDT Zahira Johnson APRN.SPECIMEN TECHNICIAN * Are you blind or do you have serious difficulty seeing, even when wearing glasses? Answer Date of Assessment Author No 12/17/2016 12:02 PM EDT Zahira Johnson APRN.SPECIMEN TECHNICIAN * Do you have serious difficulty walking or climbing stairs? Answer Date of Assessment Author Yes 12/17/2016 12:02 PM EDT Zahira Johnson APRN.SPECIMEN TECHNICIAN * Do you have difficulty dressing or bathing? Answer Date of Assessment Author Yes 12/17/2016 12:02 PM EDT Zahira Johnson APRN.SPECIMEN TECHNICIAN * Because of a physical, mental, or emotional condition, do you have difficulty doing errands alone such as visiting a doctor's office or shopping? Answer Date of Assessment Author Yes 12/17/2016 12:02 PM EDT Zahira Johnson APRN.SPECIMEN TECHNICIAN documented as of this encounter Mental Status * Because of a physical, mental, or emotional condition, do you have serious difficulty concentrating, remembering, or making decisions? Answer Entry Date Author No 12/17/2016 12:02 PM EDT Zahira Johnson APRN.SPECIMEN TECHNICIAN documented in this encounter Plan of Treatment Upcoming Encounters Date Type Department Care Team (Latest Contact Info) Description 08/23/2024 1:00 PM EDT Visit (SP) Office Hematology/Oncology [address] [place] [address] [place] [address] Curly Knapp LMT Massage - patient will be in Lobby 08/30/2024 1:00 PM EDT Visit (SP) Office Hematology/Oncology [address] [place] [address] [place] [address] Ra, Martricia, LMT Massage - patient will be in Lobby 09/07/2024 10:45 AM EDT Office Visit [facility] Laboratory [address] [place] [address] 4 week follow up with lab 09/07/2024 11:00 AM EDT Visit (SP) Office Hematology/Oncology [address] [place] [address] Rahel Strauss APRN.SPECIMEN TECHNICIAN [address] [place] [address] 4 week follow up with lab 09/13/2024 1:00 PM EDT Visit (SP) Office Hematology/Oncology [address] [place] [address] Curly Knapp LMT Massage - patient will be in [facility] 09/20/2024 1:00 PM EDT Visit (SP) Office Hematology/Oncology [address] [place] [address] Curly Knapp LMT Massage - patient will be in [facility] 09/27/2024 1:00 PM EDT Visit (SP) Office Hematology/Oncology [address] [place] [address] Curly Knapp LMT Massage - patient will be in [facility] documented as of this encounter Visit Diagnoses Not on filedocumented in this encounter Care Teams Powerhouse Mechanic Supervisor Relationship Specialty Start Date End Date Carrie Anderson MD [address] [place] [phone] PCP - General Family Medicine 04/29/12 José Manuel Carrion DO [address] [place] [address] Consulting Hematology/Oncology 10/28/17 05/24/19 Alyssa Coronado APRN.SPECIMEN TECHNICIAN [address] [place] [address] Nurse Practitioner Hematology/Oncology 01/18/1805/23/ 0 Marine Mccormack, EDISON [address] [facility] [place] [address] Specialty Medical Lab Assistant Hematology/Oncology 03/16/19 05/24/19 Magda Mcdaniel RN [address] [place] [address] Specialty Medical Lab Assistant Orthopedics 08/08/22 11/08/22 Filiberto Delcid MD [address] [facility] [place] [address] Physician Hematology/Oncology 08/14/23 Alyssa Coronado APRN.SPECIMEN TECHNICIAN [address] [place] [address] Nurse Practitioner Hematology/Oncology 08/14/23 Marine Mccormack, EDISON [address] [place] [address] Specialty Medical Lab Assistant Hematology/Oncology 08/14/23 documented as of this encounter
--- OUTSIDE RECORDS SUMMARY | 2024-08-22 11:17 | XMS_ITS | Encounter Summary ---
Author Organization [facility] Address [address] [place] [address] Care Team Providers Care Transmission Supervisor Name Role Phone Carrie Anderson MD Primary Care Provider [phone] José Manuel Carrion DO Unavailable [phone] Alyssa Coronado NETWORK SECURITY CONSULTANT.SHALE PROCESSING TECHNICIAN Unavailable [phone] Marine Mccormack RN Unavailable [phone] Magda Mcdaniel RN Unavailable Filiberto Delcid MD Unavailable [phone] Alyssa Coronado NETWORK SECURITY CONSULTANT.SHALE PROCESSING TECHNICIAN Unavailable [phone] Marine Mccormack RN Unavailable [phone] Source Comments In the event this information is protected by the Federal Confidentiality of Alcohol and Drug AbusePatient Records regulations: The Federal rules restrict any use of the information to criminally investigate or prosecute any alcohol or drug abuse patient.[facility] Encounter Details Date Type Department Care Team (Late st Contact Info) Description 11/21/2016 Patient Msg Medical Records [address] [place] [address] Provider, [facility] Your [facility] Medical Education Program Social History Tobacco [...] PM EDT Visit (SP) Office Hematology/Oncology [address] [facility] [place] [address] Curly Knapp LMT Massage - patient will be in Lobby 08/30/2024 1:00 PM EDT Visit (SP) Office Hematology/Oncology [address] [facility] [place] [address] Curly Knapp LMT Massage - patient will be in Lobby 09/07/2024 10:45 AM EDT Office Visit [facility] Laboratory [address] [facility] [address] 4 week follow up with lab 09/07/2024 11:00 AM EDT Visit (SP) Office Hematology/Oncology [address] [facility] [address] Rahel Strauss APRN.SHALE PROCESSING TECHNICIAN [address] [place] [address] 4 week follow up with lab 09/13/2024 1:00 PM EDT Visit (SP) Office Hematology/Oncology [facility] [place] [address] Curly Knapp LMT Massage - patient will be in Lobby 09/20/2024 1:00 PM EDT Visit (SP) Office Hematology/Oncology [facility] [place] [address] Curly Knapp LMT Massage - patient will be in Lobby 09/27/2024 1:00 PM EDT Visit (SP) Office Hematology/Oncology [place] [address] Ra, Martricia, LMT Massage - patient will be in Lobby documented as of this encounter Visit Diagnoses Not on filedocumented in this encounter Care Teams Transmission Supervisor Relationship Specialty Start Date End Date Carrie Anderson MD [address] [facility] [place] [address] PCP - General Family Medicine 04/29/12 José Manuel Carrion DO [address] [facility] [place] [address] Consulting Hematology/Oncology 10/28/17 05/24/19 Alyssa Coronado, SHAHID.SHALE PROCESSING TECHNICIAN [address] [facility] [place] [address] Nurse Practitioner Hematology/Oncology 01/18/18 0 Marine Mccormack, EDISON [address] [facility] [address] Specialty Console Attendant Hematology/Oncology 03/16/19 05/24/19 Magad Mcdaniel, EDISON [address] [place] [address] Specialty Console Attendant Orthopedics 08/08/22 11/08/22 Filiberto Delcid MD [address] [facility] [place] [address] Physician Hematology/Oncology 08/14/23 Alyssa Coronado, NETWORK SECURITY CONSULTANT.SHALE PROCESSING TECHNICIAN [address] [place] [address] Nurse Practitioner Hematology/Oncology 08/14/23 Marine Mccormack, RN [address] [facility] [address] Specialty Console Attendant Hematology/Oncology 08/14/23 documented as of this encounter
--- OUTSIDE RECORDS SUMMARY | 2024-08-22 11:17 | XMS_ITS | Clinical Summary ---
Author Organization [facility] Address [address] [place] [id number] Care Team Providers Care Record Press Tender Name Role Phone Carrie Anderson MD Primary Care Provider [phone] Filiberto Delcid MD Unavailable [phone] Alyssa Coronado APRN.TABLE FILLER Unavailable [phone] Marine Mccormack RN Unavailable [phone] Allergies No known active allergies Medications OMEPRAZOLE ORALIndications :Status post revision of total knee, left,Status post revision of total knee, right,Aseptic loosening of prosthetic knee, initial encounter,Infec litzy prosthetic knee joint, initial encounter Take 20 mg by mouth once daily. Active PARoxetine (PAXIL) 40 mg tablet Take 40 mg by mouth once daily. Active ascorbic acid, vitamin C, (VITAMIN C) 500 mg tablet Take 1 tablet by mouth once daily. 0 12/12/2016 Active levothyroxine (SYNTHROID) 100 mcg tablet Take 100 mcg by mouth once daily. Active multivitamin tablet Take 1 tablet by mouth twice daily. Active lisinopril-hydr ochlorothiazide (PRINZIDE,ZESTO RETIC) 10-12.5 mg per tablet Take 0.5 tablets by mouth once daily. 07/16/2017 Active ropinirole HCl (ROPINIROLE ORAL) Take 0.25 mg by mouth daily at bedtime. Active alendronate (FOSAMAX) 70 mg tablet Take 70 mg by mouth one time a week. Active traZODone (DESYREL) 50 mg tablet TAKE 1 TABLET BY MOUTH EVERY DAY AT BEDTIME NEEDED FOR 30 DAYS 05/16/2022 Active ferrous sulfate 325 mg (65 mg iron) tablet Take by mouth q 24 HR. Active ergocalciferol 50,000 unit capsule (VITAMIN D2, DRISDOL) one time a week. 06/29/2023 Active biotin 5,000 mcg chew Take 5,000 mcg by mouth once daily. Active Kgxes-RY8-JJM-E SQ-BJ1-Hqj-Astx (KRILL OIL) 1000-130(40-80) mg cap Take 1 Dose by mouth once daily. Active vitamin B complex (SUPER B COMPLEX ORAL) Take 1 Dose by mouth once daily. Active Zinc Gluconate 50 mg tablet Take 50 mg by mouth once daily. Active homeopathic drugs (LIVER ORAL) Take 9,000 mg by mouth once daily. Active Vitamin E, dl, acetate, (VITAMIN E) 400 unit capsule Take 400 Units by mouth once daily. Active TURMERIC ROOT-RENO ROOT EXT ORAL Take 1 Dose by mouth once daily. Active APPLE CIDER VINEGAR ORAL Take 1 Dose by mouth once daily. Active zanubrutinib (BRUKINSA) 80 mg capsule Take 1 capsule by mouth two times a day. 60 capsule 1 03/25/2024 9:35 AM EST 03/17/2024 Active zanubrutinib (BRUKINSA) 80 mg capsule Take 1 capsule by mouth two times a day. 180 capsule 1 07/19/2024 2:38 PM EDT 05/18/2024 Active acyclovir (ZOVIRAX) 400 mg tablet Take 1 tablet by mouth two times a day. 180 tablet 3 05/18/2024 11:24 AM EDT 05/18/2024 Active sulfamethoxazol e-trimethoprim (BACTRIM) 400-80 mg per tablet Take 1 tablet by mouth once daily. 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 Overview (07/14/2017): Added automatically from request for surgery [id number] Status post total hip replacement, right 018 Degenerative joint disease of right hip 04/03/19 18 Knee joint replacement status 12/12/2016 Primary osteoarthritis of right hip 11/19/2016 Painful total knee replacement 11/19/2016 Infection and inflammatory r eaction due to other internal orthopedic device, implant, and graft 09/08/2006 Undiagnosed cardiac murmurs 08/24/2006 Nonspecific abnormal results of liver function s tudy 08/24/2006 Essential hypertension, benign 07/24/2006 Unspecified hypothyroidism 07/24/2006 Knee joint replacement by other means 07/24/2006 Bariatric surgery status 07/24/2006 Generalized osteoarthrosis, unspecified site Esophageal reflux Resolved Problems Problem Noted Date Diagnosed Date Resolved Date Obesity (BMI 30-39.9) 11/12/20222022 Encounters Date Type Department Care Team Description 08/16/2024 1:00 PM EDT Visit (SP) Office Hematology/Oncology [address] [place] [address] [place] [address] Curly Knapp LMT Muscle soreness (Primary Dx) 08/09/2024 1:00 PM EDT Visit (SP) Office Hematology/Oncology [address] [place] [address] [place] [address] Curly Knapp, RAJIVT Muscle soreness (Primary Dx) 08/08/2024 11:00 AM EDT Visit (SP) Office Hematology/Oncology [address] [place] [address] [place] [address] Rahel Strauss APRN.TABLE FILLER 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); Waldenstrom's macroglobulinemia (HCC); Neuropathy associated with anti-MAG antibody 08/08/2024 Travel 07/26/2024 1:00 PM EDT Visit (SP) Office Hematology/Oncology [address] [place] [address] [place] [address] Curly Knapp LMT Muscle soreness (Primary Dx) 07/12/2024 1:00 PM EDT Visit (SP) Office Hematology/Oncology [address] [place] [address] [place] [address] Curly Knapp, LMT Muscle soreness (Primary Dx) 07/06/2024 11:00 AM EDT Visit (SP) Office Hematology/Oncology [address] [place] [address] [address] [place], [place] [id number] Rahel Strauss APRN.TABLE FILLER 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); Waldenstrom's macroglobulinemia (HCC); Neuropathy associated with anti-MAG antibody 07/06/2024 Travel 07/05/2024 1:00 PM EDT Visit (SP) Office Hematology/Oncology [address] [place] [address] [place] [address] Curly Knapp, LMT Muscle soreness (Primary Dx) 06/28/2024 1:30 PM EDT Visit (SP) Office Hematology/Oncology [address] [place] [address] [place] [address] Curly Knapp, LMT Muscle soreness (Primary Dx) 06/08/2024 10:30 AM EDT Visit (SP) Office Hematology/Oncology [address] [place] [address] [place] [address] Rahel Strauss APRN.TABLE FILLER 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); Waldenstrom's macroglobulinemia (HCC) 06/08/2024 Office Visit Hematology/Oncology [address] [place] [address] [place] [address] Jose Alberto, LMT Muscle soreness (Primary Dx) 06/08/2024 Travel 06/07/2024 1:00 PM EDT Visit (SP) Office Hematology/Oncology [address] [place] [address] [place] [address] Curly Knapp, LMT Muscle soreness (Primary Dx) 05/31/2024 1:00 PM EDT Visit (SP) Office Hematology/Oncology [address] [place] [address] [place] [address] Curly Knapp, LMT Muscle soreness (Primary Dx) 05/25/2024 Office Visit Hematology/Oncology [address] [place] [address] [place] [address] Jose Alberto, LMT Muscle soreness (Primary Dx) from Last 3 Months Immunizations Immunization Administration Dates Next Due COVID-19 original vaccine, f ull dose, monovalent (MODERNA) 02/15/2021,05/22/2020 COVID-19 vaccine, unspecified formulation 2020,05/04/2020 influenza (LAIV) vaccine, na beena, unspecified formulation 12/11/2017 influenza (aIIV3) vaccine, a ge 65+ yr, trivalent, PF (FLUAD) 12/11/2017 influenza (aIIV4) vaccine, a ge 65+ yr, quadrivalent, PF (FLUAD QUAD) 12/23/2021 novel influenza (Y5X3-63) vaccine, PF 01/18/2009 pneumococcal conjugate (PCV1 3) vaccine, 13 valent (PREVNAR 13) 12/11/2017 tetanus diphtheria (Td) vacc ine, age 7+ yr, 5 Lf tetanus, PF (TENIVAC) 11/21/2013 Family History Medical History Relation Comments Psychiatry Child 1 OCD GI Child 2 Developmental problem Child 3 Scoliosis( twin a), Congenital back problems (twin b) Heart Father CHF Alzheimer's Disease Mother Cancer Mother Hypertension Other 1 Stroke Other 2 Arthritis Other 3 Breast Cancer Other 4 Headache Other 5 Ischemic Heart Disease Other 6 LA Relation Status Comments Child 1 Child 2 Child 3 Father Mother Other 1 Other 2 Other 3 Other 4 Other 5 Other 6 Social History Tobacco Use Types Packs/Day Years Used Date Smoking Tobacco: Never Smokeless Tobacco: Never Tobacco Cessation:Counseling Given: Not Answered Alcohol Use Standard Drinks/Week Comments No 0 (1 standard drink = 0.6 oz pur e alcohol) PHQ-2 Answer Date Recorded PHQ-2 score 0 04/07/2024 Area Deprivation Index Answer Date Sriram rded National Score (1-100), lower number is lower ri sk 71 08/24/2023 State Score (1-10), lower number is lower risk 5 08/24/2023 Data from: https://www.neighborhoodatlas.medicine[facility]/. Last address used for calculation [address] 08/24/2023 Comments No Sex and Gender Information Value Date Recorded Sex Assigned at Not on file Legal Sex Female 7:34 AM EST Gender Identity Not on file Sexual Orientation Not on file Last Filed Vital Signs Vital Sign Reading [...] 13.8 oz) 025 11:12 AM EDT Height 162.2 cm (5' 3.86 ) 07/06/2024 1 0:45 AM EDT Body Mass Index 31.7 07/06/2024 10:45 AM EDT Plan of Treatment Upcoming Encounters Date Type Department Care Team (Latest Contact Info) Description 08/23/2024 1:00 PM EDT Visit (SP) Office Hematology/Oncology [address] [place] [address] Curly Knapp LMT [facility] 1:00 PM EDT Visit (SP) Office Hematology/Oncology [address] [place] [address] Curly Knapp LMT Massage - [facility] 09/07/2024 10:45 AM EDT Office Visit [facility] [address] [place] [address] 4 week follow up with lab 09/07/2024 11:00 AM EDT Visit (SP) Office Hematology/Oncology [address] [place] [address] Rahel Strauss APRN.TABLE FILLER [address] [place] [address] 4 week follow up with lab 09/13/2024 1:00 PM EDT Visit (SP) Office Hematology/Oncology [facility] [place] [address] Curly Knapp LMT Massage [facility] 09/20/2024 1:00 PM EDT Visit (SP) Office Hematology/Oncology [address] [facility] [place] [address] Curly Knapp LMT Massage - [facility] 09/27/2024 1:00 PM EDT Visit (SP) Office Hematology/Oncology [address] [place] [address] Curly Knapp LMT Massage - patient will be in [facility] Health Maintenance Due Date Last Done Comments Cervical Cancer Screening 1960 Annual PCP Team Chronic Dise ase Visit 1967 Anxiety Screening 1967 Shingrix Vaccine (1 of 2) 1968 CT Colonography 1994 Cologuard (FIT-DNA) 1994 Colonoscopy 1994 Colorectal Cancer Screening 1994 Fecal Occult Blood 1994 Lipid Screening 1994 Sigmoidoscopy 1994 DTaP,Tdap,Td Vaccine (1 - Tdap) 11/22/2013 4 Bone Density Screening 2014 Pneumococcal Vaccine: 50+ (2 of 2 - PPSV23) 02/05/2018 12/11/2017 Covid-19 Vaccine (6 - 2023-2 5 season) 2023 02/15/2021, 06/19/2020, 05/29/2020, Additional history exists Advance Directive Discussion 03/02/2024 Medicare Advantage Annual We llness Visit 03/02/2024 RSV Vaccine (1 - 1-dose 75+ series) 2024 Influenza Vaccine (Season Ended) 2024 12/23/2021, 12/11/2017, 12/11/2017, Additional history exists Diabetes Screening 08/09/2027 08/08/2024, 0 07/06/2024, 06/08/2024, Additional history exists Hepatitis C Screening Completed 08/17/2023, 024 Medical Devices Implanted Type Area Punch Press Feeder Device Identifier Shelf Expiration Date Model / Serial / Lot Implant Implant Bilatera l: Eye Description:Bilat cataract l ens implants [place] Femoral Sleeve Full Porous Implanted:Qty: 1 on 12/12/2016 at [facility] Implant Right: Bone - Knee DEPUY 04/14/2026 [id number] / / [id number] Jpc-Zt-S-Kind Implant - [id number] Implanted:Qty: 1 on 12/12/2016 at [facility] Implant Right: Bone - Knee DEPUY 04/14/2026 [id number] / / [id number] Pax-Yz-F-Kind Implant - [id number] Implanted:Qty: 1 on 12/12/2016 at [facility] Implant Right: Bone - Knee DEPUY 03/14/2025 [id number] / / [id number] Tibial Insert Hinge 12mm Implanted:Qty: 1 on 12/12/2016 at [facility] Implant Right: Bone - Knee BI[employer]ET [employer] 07/12/[id number] / / [id number] Distal Femoral Comonent Xx-Small Right Implanted:Qty: 1 on 12/12/2016 at [facility] Implant Right: Bone - Knee [employer] 07/12/2021 / / [id number] Distal Femoral Component Left Implanted:Qty: 1 on 08/28/2017 at [facility] Implant Left: Bone - Tibia DEPUY 05/30/2022 / / [id number] Description:wood check Metaphyseal Sleeve Implanted:Qty: 1 on 08/28/2017 at [facility] Implant Left: Bone - Tibia DEPUY 05/31/2027 [id number] / / [id number] Tdk-Qr-V-Kind Implant - [id number] Implanted:Qty: 1 on 08/28/2017 at [facility] Implant [employer] 05/30/2022 [id number] / / [id number] Description:tibial insert hi nge universal xxsmall 18mm wood check Cable Antoine 2mm Vitallium Orthopedic Set Sleeve Bead Hip - [id number] Implanted:Qty: 2 on 12/12/2016 at [facility] Joint - Hip Right: Bone - Knee [employer] 10/12/2021 [id number] / / [id number] Shell Continuum 56mm Kk Hemispherical Taper Trabecular Metal Tivanium - [id number] Implanted:Qty: 1 on 04/03/2017 at [facility] Joint - Hip Right: Bone - Hip [employer] 01/31/2027 [id number] / / [id number] Liner 56mm 36mm Kk Neutral Longevity Acetabular Continuum Hip - [id number] Implanted:Qty: 1 on 04/03/2017 at [facility] Joint - Hip Right: Bone - Hip [employer] 11/01/2021 [id number] / / [id number] Stem Taperloc Microplasty 133d 14 Standard Offset Taper Pps 113mm Femoral - [id number] Implanted:Qty: 1 on 04/03/2017 at [facility] Joint - Hip Right: Bone - Hip [employer] 01/01/2026 [id number] / / [id number] Head 36mm -3mm Biolox Delta Femoral Modular Biomet Type I Taper Stem Hip - [id number] Implanted:Qty: 1 on 04/03/2017 at [facility] Joint - Hip Right: Bone - Hip [employer] 11/01/2026 [id number] / / [id number] Cable Dall-Miles 2mm Vitallium Orthopedic Set Sleeve Bead Hip - [id number] Implanted:Qty: 1 on 08/28/2017 at [facility] Joint - Hip Left: Bone - Femur [facility] 04/10/2022 [id number] / / [id number] Stem 16mm [place] Flute 75mm Femoral Press Fit Knee - [id number] Implanted:Qty: 1 on 08/28/2017 at [facility] Joint - Hip Left: Bone - Tibia J&J [employer]PUY [employer] 05/31/2027 [id number] / / [id number] Stem 16mm [place] Flute 75mm Femoral Press Fit Knee - [id number] Implanted:Qty: 1 on 08/28/2017 at [facility] Joint - Hip Left: Bone - Femur J&J [employer]PUY [employer] 05/31/2027 [id number] / / [id number] Screw Trilogy 6.5mm Tivanium 30mm Bone Self Tap Sterile Cortex Hip - [id number] Implanted:Qty: 1 on 04/03/2017 at [facility] Screw Right: Bone - Hip [employer] 10/01/2026 [id number] / / [id number] Procedures Procedure Name Priority Date/Time Associated Diagnosis Comments COMPREHENSIVE METABOLIC PANEL Routine 08/08/2024 11:11 AM EDT Waldenstrom's macroglobulinemia (HCC) Neuropathy associated with anti-MAG antibody CBC + DIFF Routine 08/08/2024 11:11 AM EDT Waldenstrom's macroglobulinemia (HCC) Neuropathy associated with anti-MAG antibody LD LACTATE DEHYDRO Routine 08/08/2024 11 :11 AM EDT Waldenstrom's macroglobulinemia (HCC) Neuropathy associated with anti-MAG antibody COMPREHENSIVE METABOLIC PANEL Routine 07/06/2024 10:39 AM EDT Waldenstrom's macroglobulinemia (HCC) Neuropathy associated with anti-MAG antibody CBC + DIFF Routine 07/06/2024 10:39 AM EDT Waldenstrom's macroglobulinemia (HCC) Neuropathy associated with anti-MAG antibody LD LACTATE DEHYDRO Routine 07/06/2024 10 :39 AM EDT Waldenstrom's macroglobulinemia (HCC) Neuropathy associated with anti-MAG antibody COMPREHENSIVE METABOLIC PANEL Routine 06/08/2024 10:18 AM EDT Waldenstrom's macroglobulinemia (HCC) Neuropathy associated with anti-MAG antibody CBC + DIFF Routine 06/08/2024 10:18 AM EDT Waldenstrom's macroglobulinemia (HCC) Neuropathy associated with anti-MAG antibody LD LACTATE DEHYDRO Routine 06/08/2024 10 :18 AM EDT Waldenstrom's macroglobulinemia (HCC) Neuropathy associated with anti-MAG antibody HEPATITIS C ANTIBODY IA WITH CONFIRMATION Routine 08/17/2023 10:04 AM EDT Waldenstrom's macroglobulinemia (HCC) from Last 3 Months or Most Recently Relevant to Health Maintenance Results * (ABNORMAL) LACTATE DEHYDROGENASE (08/08/2024 11:11 AM EDT) Only the most recent of3 resultswithin the time period is included. LD 238(H) 135 - 214 U/L 08/08/2024 12:35 PM EDT [facility] Blood BLOOD SPECIMEN / Unknown Venipuncture / Unknown 08/08/2024 11:11 AM EDT 08/08/2024 11:11 AM EDT us Filiberto Delcid MD LABORATORY Final Result [facility] [address] [place] [address] * (ABNORMAL) COMPREHENSIVE METABOLIC PANEL (08/08/2024 11:11 AM EDT) Only the most recent of3 resultswithin the time period is included. Pathologist [facility] Protein, Total 5.9(L) 6.3 - 8.0 g/dL 08/08/2024 12:36 PM EDT [facility] Albumin 4.0 3.9 - 4.9 g/dL 08/08/2024 12:36 PM EDT [facility] Calcium, Total 10.0 8.5 - 10.2 mg/dL 08/08/2024 12:36 PM EDT [facility] Bilirubin, Total 0.2 0.2 - 1.3 mg/dL 08/08/2024 12:36 PM EDT [facility] Alkaline Phosphatase 72 34 - 123 U/L 08/08/2024 12:36 PM EDT [facility] AST 33 13 - 35 U/L 08/08/2024 12:36 PM EDT [facility] ALT 28 7 - 38 U/L 08/08/2024 12:36 PM EDT [facility] Glucose 88 74 - 99 mg/dL 08/08/2024 12:36 PM EDT [facility] Comment: The [place] Diabetes [employer] (ADA) provides guidance for cutoff values for fasting glucose and random glucose. The ADA defines fasting as no caloric intake for at least 8 hours. Fasting plasma glucose results between 100 to 125 mg/dL indicate increased risk for diabetes (prediabetes). Fasting plasma glucose results greater than or equal to 126 mg/dL meet the criteria for diagnosis of diabetes. In the absence of unequivocal hyperglycemia, results should be confirmed by repeat testing. In a patient with classic symptoms of hyperglycemia or hyperglycemic crisis, random plasma glucose results greater than or equal to 200 mg/dL meet the criteria for diagnosis of diabetes. Reference: Standards of Medical Care in Diabetes 2016, [place] [employer]. Diabetes Care. 2016.39(Suppl 1). BUN 33(H) 7 - 21 mg/dL 08/08/2024 12:36 PM EDT [facility] Creatinine 0.84 0.58 - 0.96 mg/dL 08/08/2024 12:36 PM EDT [facility] Sodium 141 136 - 144 mmol/L 08/08/2024 12:36 PM EDT [facility] Potassium 4.2 3.7 - 5.1 mmol/L 08/08/2024 12:36 PM EDT [facility] Chloride 105 98 - 107 mmol/L 08/08/2024 12:36 PM EDT [facility] CO2 26 22 - 30 mmol/L 08/08/2024 12:36 PM EDT [facility] Anion Gap 10 8 - 15 mmol/L 08/08/2024 12:36 PM EDT [facility] Estimated Glomerular Filtration Rate 73 >=60 mL/min/1. 73m 08/08/2024 12:36 PM EDT [facility] Comment:Estimated Glomerular Filtration Rate (eGFR) is calculated using the 2020 CKD-EPI creatinine equation. This equation utilizes serum creatinine, sex, and age as parameters. The creatinine assay has traceable calibration to isotope dilution- mass spectrometry. Refer to KDIGO guidelines for clinical interpretation. In patients with unstable renal function, e.g. those with acute kidney injury, the eGFR may not accurately reflect actual GFR. Blood BLOOD SPECIMEN / Unknown Venipuncture / Unknown 08/08/2024 11:11 AM EDT 08/08/2024 11:11 AM EDT us Filiberto Delcid MD LABORATORY Final Result [facility] [address] [place] [address] * COMPLETE BLOOD COUNT AND DIFFERENTIAL (08/08/2024 11:11 AM EDT) Only the most recent of3 resultswithin the time period is included. WBC 9.16 3.70 - 11.00 k/uL 08/08/2024 11:14 AM EDT [facility] RBC 3.96 3.90 - 5.20 m/uL 08/08/2024 11:14 AM EDT [facility] Hemoglobin 12.4 11.5 - 15.5 g/dL 08/08/2024 11:14 AM EDT [facility] Hematocrit 38.7 36.0 - 46.0 % 08/08/2024 11:14 AM EDT [facility] MCV 97.7 80.0 - 100.0 fL 08/08/2024 11:14 AM EDT [facility] MCH 31.3 26.0 - 34.0 pg 08/08/2024 11:14 AM EDT [facility] MCHC 32.0 30.5 - 36.0 g/dL 08/08/2024 11:14 AM EDT [facility] RDW-CV 13.2 11.5 - 15.0 % 08/08/2024 11:14 AM EDT [facility] Platelet Count 157 150 - 400 k/uL 08/08/2024 11:14 AM EDT [facility] MPV 11.3 9.0 - 12.7 fL 08/08/2024 11:14 AM EDT [facility] Neutrophils % 73.1 % 08/08/2024 11:14 AM EDT [facility] Abs Neut 6.70 1.45 - 7.50 k/uL 08/08/2024 11:14 AM EDT [facility] Lymphocytes % 17.5 % 08/08/2024 11:14 AM EDT [facility] Abs Lymph 1.60 1.00 - 4.00 k/uL 08/08/2024 11:14 AM EDT [facility] Monocytes % 5.7 % 08/08/2024 11:14 AM EDT [facility] Abs [place] 0.52 <0.87 k/uL 08/08/2024 11:14 AM EDT [facility] Eosinophils % 3.2 % 08/08/2024 11:14 AM EDT [facility] Abs Eosin 0.29 <0.46 k/uL 08/08/2024 11:14 AM EDT [facility] Basophils % 0.4 % 08/08/2024 11:14 AM EDT [facility] Abs Baso 0.04 <0.11 k/uL 08/08/2024 11:14 AM EDT [facility] Immature Granulocytes % 0.1 % 08/08/2024 11:14 AM EDT [facility] Abs Immature Gran <0.03 <0.10 k/uL 025 11:14 AM EDT [facility] NRBC 0.0 /100 WBC 08/08/2024 11:14 AM EDT [facility] Absolute nRBC <0.01 <0.01 k/uL 08/08/2024 11:14 AM EDT [facility] Diff Type Auto 08/08/2024 11:14 AM EDT [facility] Blood BLOOD SPECIMEN / Unknown Venipuncture / Unknown 08/08/2024 11:11 AM EDT 08/08/2024 11:11 AM EDT us Filiberto Delcid MD LABORATORY Final Result [facility] [address] [place] [address] * HEPATITIS C ANTIBODY IA WITH CONFIRMATION (08/17/2023 10:04 AM EDT) Hep C Antibody IA Negative Negative 08/17/2023 9:05 PM EDT [facility] Comment:The result suggests no evidence of active infection with Hepatitis C virus. Should recent infection be suspected, repeat testing may be considered 4-6 weeks after this draw. Blood BLOOD SPECIMEN / Unknown Venipuncture / Unknown 08/17/2023 10:04 AM EDT 08/17/2023 10:24 AM EDT Filiberto Delcid MD LABORATORY Final Result [facility] [address] [place] [address], from Last 3 Months or Most Recently Relevant to Health Maintenance Insurance [employer] MEDICARE Advance Directives Documents on File Type Date Recorded Patient Pipefitter Expl anation Advance Directive(s) 11/05/2010 Advance Directive(s) 09/10/2006 Care Teams Record Press Tender Relationship Specialty Start Date End Date Carrie Anderson MD [address] [place] [phone] PCP - General Family Medicine 04/29/12 Filiberto eDlcid MD [address] [place] [address] Physician Hematology/Oncology 08/14/23 Alyssa Coronado APRN.TABLE FILLER [address] [place] [address] Nurse Practitioner Hematology/Oncology 08/14/23 Marine Mccormack, EDISON [address] [place] [address] [place] [address] Specialty Biomedical Engineering Technologist Hematology/Oncology 08/14/23
--- NOTE | 2024-08-22 11:20 | MM_ITS ---
Patient Name: BLANCHE MONIQUE MR#: [id number] : 1950 Exam Date: 08/22/2024 Ordering Doctor: DR COSMO FAY M.D. RADIOLOGY REPORT PROCEDURE: MM TOMOSYNTHESIS SCREENING BI COMPARISON: MM TOMOSYNTHESIS DIAGNOSTIC BI, 07/03/2023. MG MAMM SCREEN 3D YESSI CAD, 06/23/2022. MG MAMM SCREEN 3D YESSI CAD, 05/10/2021. MG MAMM YESSI SCRN W CAD DIG, 02/14/2014. INDICATIONS: Screening Calculator Name NCI Breast Cancer Risk Assessment Tool 5 Year Breast Cancer Risk 3.80% Lifetime Breast Cancer Risk 8.10% Personal Breast Cancer No Personal Ovarian Cancer No Treatments None Family Cancers Mother with breast cancer at age 55; Aunt-maternal with breast cancer at age 55. LOCATION: [facility] BREAST COMPOSITION: There are scattered areas of fibroglandular density. FINDINGS: DIAGNOSTIC CATEGORY 1--NEGATIVE. RIGHT BREAST: No significant suspicious finding. LEFT BREAST: No significant suspicious finding. RECOMMENDATIONS: ROUTINE MAMMOGRAM AND CLINICAL EVALUATION IN 12 MONTHS. PLEASE NOTE: A NORMAL MAMMOGRAM DOES NOT EXCLUDE THE POSSIBILITY OF BREAST CANCER. A CLINICALLY SUSPICIOUS PALPABLE LUMP SHOULD BE BIOPSIED. Dictated by: Bobby Santo DO on 08/22/2024 at 16:37 Approved by: Bobby Santo DO on 08/22/2024 at 16:38
== END 2024-08-22 11:13 | disposition home or self-care (01) ==
PROVIDERS: PCP Family Medicine; Visit Provider Family Medicine
DX: Z12.31 Encounter for screening mammogram for malignant neoplasm of breast (principal); M81.0 Age-related osteoporosis without current pathological fracture; Z80.3 Family history of malignant neoplasm of breast
CPT/HCPCS: 77063; 77067; 77080